=== PATIENT | male | born 1955 | race Caucasian/White ===

== ENCOUNTER 2017-05-17 21:09 | Inpatient (IN) | payer OTHER ==
[~2017-05-17] VITALS: Ht 172.7 cm; Wt 60.0 kg
--- NOTE | 2017-05-17 21:17 | NUR ---
PT TO ER C/C N/V X 1 DAY. + RUQ PAIN SHARP IN NATURE. PATIENT ALSO STATES IS HAVING MILD SOB
--- NOTE | 2017-05-17 21:53 | NUR ---
APPRECIATE TRIAGE NOTE. PT TO ROOM [address] ALVAREZ[address]
--- NOTE | 2017-05-17 22:33 | NUR ---
LABS DRAWN AND SENT. IV ESTABLISHED #20 TO [facility]. MEDICATED PER EMAR.
[2017-05-17 22:38] LABS: ABSOLUTE BASOPHIL COUNT 0 /CUMM (0.0-0.2); ABSOLUTE EOSINOPHIL COUNT 0.1 /CUMM (0.0-0.7); ABSOLUTE GRANULOCYTE CT 11.4 /CUMM (1.4-6.5); ABSOLUTE LYMPH COUNT 1.8 /CUMM (1.2-3.4); ABSOLUTE MONOCYTE COUNT 1.1 /CUMM (0.10-0.60); BASOPHIL % 0.3 % (0.0-2.0); EOSINOPHIL % 0.4 % (0-5); GRANULOCYTE % 79.2 % (42.2-75.2); HEMATOCRIT 44.5 % (42-52); MEAN CORPUSCULAR HGB 30.9 PG (27.0-31.0); MEAN CORPUSCULAR HGB CONC 33.9 G/DL (33.0-37.0); MEAN CORPUSCULAR VOLUME 91.2 FL (80.0-94.0); MEAN PLATELET VOLUME 8.9 FL (7.4-10.4); PLATELET COUNT 253 /CUMM (130-400); RBC DISTRIBUTION WIDTH 13.9 % (11.5-14.5); RED BLOOD CELL CT 4.88 /CUMM (4.70-6.10); WHITE BLOOD CELL COUNT 14.4 /CUMM (4.8-10.8)
--- NOTE | 2017-05-17 23:00 | NUR ---
PT RESTING COMFORTABLY ON STRETCHER AT THIS TIME, NAD NOTED.
--- NOTE | 2017-05-17 23:22 | RADIOLOGY REPORT ---
EXAMINATION: XR CHEST CLINICAL INFORMATION: Productive cough. Weakness. COMPARISON: None TECHNIQUE: 2 views of the chest were obtained. FINDINGS: No significant abnormality is noted involving the heart, lungs, mediastinum, bony thorax or soft tissues. IMPRESSION: Unremarkable examination.
--- NOTE | 2017-05-18 00:10 | NUR ---
URINE SAMPLE SENT TO LAB
[2017-05-18] MEDS ORDERED: AMLODIPINE BESY10 M1 PO (00:33)
[2017-05-18] MEDS ORDERED: PROAIR HFA8.5 GM INH (00:33)
[2017-05-18] MEDS ORDERED: LISINOPRIL10 M1 PO (00:33)
[2017-05-18] MEDS ORDERED: FLUTICASONE PRO16 GM NASB (00:33)
--- NOTE | 2017-05-18 01:01 | ED DYSPNEA/ASTHMA COMPLAINT ---
History of Present Illness General Chief Complaint: Dyspnea (COPD, CHF, Other) Stated Complaint: PT SOB OF BREATH, RT SIDE PAIN,LIGTH HEADED Source: patient, old records, friend Exam Limitations: no limitations Vital Signs & Intake/Output Vital Signs & Intake/Output Vital Signs Date Time Temp Pulse Resp B/P B/P Pulse O2 O2 Flow FiO2 Mean Ox Delivery Rate 05/18 0128 96.5 76 20 108/58 96 Room Air 05/17 2256 97.8 90 17 126/70 99 Room Air 05/17 2116 97.4 95 18 129/74 98 Room Air ED Intake and Output 05/18 0000 05/17 1200 Intake Total 1000 Output Total Balance 1000 Intake, IV 1000 Patient 135 lb Weight Weight Estimated Measurement Method Allergies Coded Allergies: Penicillins (Intermediate, ABD PAIN 05/17/17) Reconcile Medications Amlodipine Besylate 10 MG TABLET 1 TAB PO DAILY HIGH BLOOD PRESSURE (Reported ) Triage Note: PT TO ER C/C N/V X 1 DAY. + RUQ PAIN SHARP IN NATURE. Triage Nurses Notes Reviewed? yes Onset: Last week Duration: day(s):, constant, continues in ED, getting worse Timing: recent history Severity: moderate, severe Activities at Onset: none Prior Episodes/Possible Cause: occasional episodes Modifying Factors: Worsens With: jarring, movement. Associated Symptoms: cough, loss of appetite, lightheadedness, weakness HPI: 1 week prior to admission patient complains of nonproductive cough shortness of breath anorexia nausea vomiting with right lower chest upper quadrant pain described as sharp moderate to severe nonradiating constant. He was supposed to follow-up with [facility] / liver team for 2 masses identified on his liver. Denies fever chills headache dysuria rash diarrhea bleeding. Reports losing 6 pounds over the last week. Past History Travel History Traveled to [place] past 21 day No Medical History Any Pertinent Medical History? see below for history Cardiovascular: hypertension Hepatic: 2 liver masses ? hepatoma Surgical History Surgical History: non-contributory Psychosocial History What is your primary language Czech Tobacco Use: Current Daily Use Daily Tobacco Use Amount/Type: => 5 Cigarettes daily Family History Hx Contributory? No Review of Systems Review of Systems Constitutional: Reports: see HPI, malaise. EENTM: Reports: no symptoms. Respiratory: Reports: see HPI, cough, short of breath. Cardiovascular: Reports: no symptoms. GI: Reports: see HPI, abdominal pain, nausea, vomiting. Genitourinary: Reports: no symptoms. Musculoskeletal: Reports: no symptoms. Skin: Reports: no symptoms. Neurological/Psychological: Reports: no symptoms. Hematologic/Endocrine: Reports: no symptoms. Immunologic/Allergic: Reports: no symptoms. All Other Systems: Reviewed and Negative Physical Exam Physical Exam General Appearance: well developed/nourished, alert, awake, anxious, moderate distress, thin Head: atraumatic, normal appearance Eyes: Bilateral: normal appearance, PERRL, EOMI. Ears, Nose, Throat: normal pharynx, normal ENT inspection, hearing grossly normal Neck: normal inspection, supple, full range of motion, no midline tenderness Respiratory: normal breath sounds, chest non-tender, no respiratory distress, quiet respiration, lungs clear Cardiovascular: regular rate/rhythm, normal peripheral pulses, norml femoral pulses equa Peripheral Pulses: 4+ carotid (R), 4+ carotid (L) Gastrointestinal: normal bowel sounds, soft, no organomegaly, tenderness (right upper quadrant), hepatomegaly Extremities: normal inspection, normal capillary refill, normal range of motion, no edema Neurologic/Psych: no motor/sensory deficits, awake, alert, oriented x 3, normal gait, normal mood/affect, facility rehab director II-XII nml as tested Skin: intact, normal color, warm/dry Lymphatic: no anterior cervical vladimir Core Measures ACS in differential dx? No Severe Sepsis Present: No Septic Shock Present: No Progress Differential Diagnosis: COPD, pneumonia Plan of Care: Orders Procedure Date/time Status Regular Diet 05/18 B Active OXYGEN SETUP (GEN) 05/18 58 Active Saline Lock 05/18 58 Active Admit to inpatient 05/18 0058 Active Vital Signs 05/18 0058 Active Activity/Ambulation 05/18 0058 Active Code Status 05/[address] ABD & PELVIS W/O IV CONTRAS 05/18 0057 Active Patient Data 05/18 0035 Active URINALYSIS 05/17 2338 Complete Intake & Output 05/17 2232 Active TROPONIN LEVEL 05/17 220 Complete LIPASE 05/17 220 Complete DIRECT BILIRUBIN 05/17 2201 Complete COMPREHENSIVE METABOLIC PANEL 05/17 2201 Complete CBC WITHOUT DIFFERENTIAL 05/17 2201 Complete EKG 05/172 Active Current Medications Sig/Tameka Start time Last Medication Dose Stop Time Status Admin Amlodipine Besylate 10 MG DAILY 05/18 1000 UNVr (Norvasc) Ondansetron HCl 4 MG Q6P PRN 05/18 0115 UNVr (Zofran) Sodium Chloride 1,000 ML Q10H 05/18 0115 UNVr 05/18 (Normal Saline 0.9%) 0127 Laboratory Tests 05/18/17 0009: Urinalysis LIGHT H, Urine Color YEL, Urine Clarity CLEAR, Urine pH 6.0, Ur Specific Bishop 1.015, Urine Protein 100 H, Urine Ketones NEG, Urine Nitrite NEG, Urine Bilirubin NEG, Urine Urobilinogen 0.2, Ur Leukocyte Esterase NEG, Ur Microscopic SEDIMENT EXAMINED, Urine RBC 1-3, Urine WBC 1-3 H, Ur Epithelial Cells FEW, Urine Bacteria FEW H, Hyaline Casts RARE H, Urine Mucus FEW, Urine Hemoglobin TRACE-INTACT H, Urine Glucose NEG 05/17/17 2226: Anion Gap 20 H, Estimated GFR 23 L, BUN/Creatinine Ratio 15.4, Glucose 115 H, Calcium 8.9, Total Bilirubin 0.4, Direct Bilirubin 0.4, AST 38, ALT 33, Alkaline Phosphatase 145 H, Troponin I < 0.01, Total Protein 8.0, Albumin 4.7, Globulin 3.3, Albumin/Globulin Ratio 1.4, Lipase 36, CBC w Diff NO MAN DIFF REQ, RBC 4.88 , MCV 91.2, MCH 30.9, RDW 13.9, MPV 8.9, Gran % 79.2 H, Lymphocytes % 12.3 L, Monocytes % 7.8, Eosinophils % 0.4, Basophils % 0.3, Absolute Granulocytes 11.4 H, Absolute Lymphocytes 1.8, Absolute Monocytes 1.1 H, Absolute Eosinophils 0.1 , Absolute Basophils 0, PUBS MCHC 33.9 Diagnostic Imaging: Viewed by Me: Radiology Read. Discussed w/RAD: Radiology Read. Radiology Impression: no acute abnormality Initial ED EKG: normal axis, normal intervals, normal p-waves, normal QRS complex, normal sinus rhythm, no ST T wave changes Prior EKG: unchanged Rhythm Strip: normal sinus rhythm Departure Departure Disposition: STILL A PATIENT Condition: Stable Clinical Impression Primary Impression: Acute renal failure Qualifiers: Acute renal failure type: unspecified Qualified Code: N17.9 - Acute kidney failure, unspecified Secondary Impressions: Liver masses, Right upper quadrant pain Referrals: KAROL GIBBS (PCP/Family) Departure Forms: Customer Survey General Discharge Information Admission Note Spoke With: ANYA DEJESUS MD Documentation of Exam: Documentation of any treatments & extenuating circumstances including Concerns Regarding Discharge (functional status, medication knowledge or non-compliance, living conditions, etc.) that warrant an admission rather than observation: IV hydration advance diet serial lab exam GI evaluation renal evaluation continuing care discharge planning Critical Care Note Critical Care Note Critical Care Time: non-applicable
--- NOTE | 2017-05-18 01:59 | NUR ---
REPORT GIVEN TO MELANY STOREY.
--- NOTE | 2017-05-18 02:08 | NUR ---
PT TO CAT SCAN VIA W/C, THEN TO FLOOR WITH [facility]. ALL PAPERWORK AND BELONGINGS SENT WITH PT. CLINICAL STATUS UNCHANGED.
[2017-05-18 02:21] VITALS: BP 136/74
--- NOTE | 2017-05-18 02:57 | CT SCAN REPORT ---
EXAMINATION: CT ABDOMEN AND PELVIS WITHOUT CONTRAST CLINICAL INFORMATION: Right upper quadrant pain COMPARISON: 01/03/2017 TECHNIQUE: Multidetector volumetric imaging was performed from the superior aspect of the liver through the pubic symphysis. Sagittal and coronal reformatted images were obtained on the technologist's workstation. DLP: 263.51 mGy-cm FINDINGS: LUNG BASES: The visualized lung bases are unremarkable. LIVER, GALLBLADDER, AND BILIARY TREE: There are multiple masses identified within the liver, increased in number since 01/03/2017. The largest mass lies in the inferior right hepatic lobe and measures approximately 7.7 x 7.7 cm, increased from approximately 5.7 x 5.3 cm when measured in similar fashion previously. No significant biliary ductal dilatation is seen. The gallbladder is unremarkable. PANCREAS: Unremarkable. SPLEEN: Unremarkable. ADRENAL GLANDS: Unremarkable. KIDNEYS AND URETERS: The kidneys are normal in size, shape, and attenuation. There are a few punctate renal calculi bilaterally. No hydronephrosis bilaterally. BLADDER: Unremarkable. GASTROINTESTINAL TRACT: A suture line is present in the sigmoid colon. There is colonic diverticulosis without convincing evidence for diverticulitis. No evidence of bowel obstruction. The appendix is unremarkable. ABDOMINAL WALL: No significant hernia is appreciated. LYMPH NODES: No lymphadenopathy is seen, though assessment is somewhat limited in the absence of intravenous contrast. VASCULAR: There is atherosclerotic calcification along the aorta. PELVIC VISCERA: Unremarkable. OSSEOUS STRUCTURES: Multilevel degenerative changes are present, most prominently at L5-S1. IMPRESSION: 1. Interval increase in number of hepatic masses since 01/03/2017, suspicious for metastatic disease. The largest mass measures approximately 7.7 x 7.7 cm, increased from 5.7 x 5.3 cm previously. 2. Punctate bilateral renal calculi without hydronephrosis. 3. Colonic diverticulosis.
--- NOTE | 2017-05-18 03:50 | History & Physical ---
SLIME MASON,[facility] 05/18/17 0309: General Information and HPI MD Statement: I have seen and personally examined ALIREZA LOUIS and documented this H&P. The patient is a 61 year old M who presented with a patient stated chief complaint of [abdominal pain, nausea vomiting]. Source of Information: patient Exam Limitations: no limitations History of Present Illness: Mr. Louis is 61 year old male with past medical history of hypertension, COPD , diverticulitis status post diversion colostomy, alcohol abuse, current smoker who presented to ED with chief complaint of abdominal pain, nausea vomiting and dyspnea. Patient reported abdominal pain right upper quadrant radiating to epigastrium, sharp in nature, 7/10 that started over the last week and had maximum intensity today associated with nausea and vomiting 2 of dark "soda" like vomits, concentrated urine, poor appetite, weight loss (approximately 6 pounds), diarrhea 2 today watery, denied blood. In December 2016, patient had low-dose CT scan screening for lumg cancer and was noticed to have some abnormality in the liver, PCP requested MRI abdomen pelvis that revealed multiple hepatic metastatic disease/cholangiocarcinoma. Patient followed up with Dr. Edgar Mathur who advised him to follow at [facility]. Patient missed his appointment on May 17 at [facility] because of transportation issues. Patient reported shortness of breath started today, dry cough, chills, night sweats, dizziness and blurry vision for the last couple of days. Patient denied any fever, dysuria, hematuria, chest pain, palpitation, loss of consciousness, history of falls, skin changes, jaundice. Patient isn't every day smoker, cut down to 5 cigarettes per day, smokes since age 17. History of narcotic abuse, quit 18 years ago. No history of IV drug abuse. Patient reported negative hepatitis and HIV. 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 Family history strong for cancer, father had prostate cancer, mother colon cancer and brother oropharyngeal cancer. Next of kin sister Allergies/Medications Allergies: Coded Allergies: Penicillins (Intermediate, ABD PAIN 05/17/17) Home Med list Amlodipine Besylate 10 MG TABLET 1 TAB PO DAILY HIGH BLOOD PRESSURE (Reported ) Past History Travel History Traveled to [place] past 21 day No Medical History Blood Transfusion Hx: No Neurological: NONE EENT: NONE Cardiovascular: hypertension Respiratory: COPD Gastrointestinal: NONE Hepatic: 2 liver masses ? hepatoma Renal: NONE Musculoskeletal: NONE Psychiatric: NONE Endocrine: NONE Blood Disorders: NONE Cancer(s): liver cancer MANAGER PRIVATE/Reproductive: NONE History of MRSA: No History of VRE: No History of CDIFF: No Isolation History: Standard Surgical History Surgical History: diverticulitis s/p colostomy diversion Past Family/Social History Psychosocial History Where do you live? Other (homeless ) Who Do You Live With? homeless Services at Home: None Primary Language: [place] Smoking Status: Current Everyday Smoker ETOH Use: denies use, x used Illicit Drug Use: denies illicit drug use Other Social History: Nest of kin is sister Functional Ability ADLs Independent: dressing, eating, toileting, bathing. Ambulation: independent IADLs Independent: shopping, housework, finances, food prep, telephone, transportation , medication admin. Employment History Employment Unemployed Review of Systems Review of Systems Constitutional: Reports: see HPI. Exam & Diagnostic Data Last 24 Hrs of Vital Signs/I&O Vital Signs Date Time Temp Pulse Resp B/P B/P Pulse O2 O2 Flow FiO2 Mean Ox Delivery Rate 05/18 0221 98.0 82 18 136/74 98 Room Air 05/18 0128 96.5 76 20 108/58 96 Room Air 05/17 2256 97.8 90 17 126/70 99 Room Air 05/17 2116 97.4 95 18 129/74 98 Room Air Intake & Output 05/18 0800 05/18 0000 05/17 1600 Intake Total 1000 Output Total Balance 1000 Intake, IV 1000 Patient 60.016 kg 61.235 kg Weight Weight Standing Scale Estimated Measurement Method Physical Exam General Appearance Alert, Oriented X3, Cooperative, No Acute Distress Skin No Rashes, No Breakdown, No Significant Lesion, Bhat skin Skin Temp/Moisture Exam: Warm/Dry HEENT Atraumatic, PERRLA, EOMI, Mucous Membr. moist/pink Neck Supple, No JVD Lymphatic No cervical lymphadenopathy Cardiovascular Regular Rate, Normal S1, Normal S2, No Murmurs, Tachycardia Lungs diffuse occional wheeze and fine end inspiratory crackles Abdomen Normal Bowel Sounds, Soft, Mild tenderness RUQ and BL CVA Neurological Normal Gait, Normal Speech, Strength at 5/5 X4 Ext, Normal Tone, Sensation Intact, Cranial Nerves 3-12 NL, Reflexes 2+ Extremities No Clubbing, No Cyanosis, No Edema, Normal Pulses, No Tenderness/ Swelling Last 24 Hrs of Labs/Nish: Laboratory Tests 05/18/17 0009: Urinalysis LIGHT H, Urine Color YEL, Urine Clarity CLEAR, Urine pH 6.0, Ur Specific [place] 1.015, Urine Protein 100 H, Urine Ketones NEG, Urine Nitrite NEG, Urine Bilirubin NEG, Urine Urobilinogen 0.2, Ur Leukocyte Esterase NEG, Ur Microscopic SEDIMENT EXAMINED, Urine RBC 1-3, Urine WBC 1-3 H, Ur Epithelial Cells FEW, Urine Bacteria FEW H, Hyaline Casts RARE H, Urine Mucus FEW, Urine Hemoglobin TRACE-INTACT H, Urine Glucose NEG 05/17/17 2226: Anion Gap 20 H, Estimated GFR 23 L, BUN/Creatinine Ratio 15.4, Glucose 115 H, Calcium 8.9, Total Bilirubin 0.4, Direct Bilirubin 0.4, AST 38, ALT 33, Alkaline Phosphatase 145 H, Troponin I < 0.01, Total Protein 8.0, Albumin 4.7, Globulin 3.3, Albumin/Globulin Ratio 1.4, Lipase 36, CBC w Diff NO MAN DIFF REQ, RBC 4.88 , MCV 91.2, MCH 30.9, RDW 13.9, MPV 8.9, Gran % 79.2 H, Lymphocytes % 12.3 L, Monocytes % 7.8, Eosinophils % 0.4, Basophils % 0.3, Absolute Granulocytes 11.4 H, Absolute Lymphocytes 1.8, Absolute Monocytes 1.1 H, Absolute Eosinophils 0.1 , Absolute Basophils 0, PUBS MCHC 33.9 Diagnostic Data CXR Results IMPRESSION: Unremarkable examination. Other Results CT without contrast abdomen and pelvis IMPRESSION: 1. Interval increase in number of hepatic masses since 01/03/2017, suspicious for metastatic disease. The largest mass measures approximately 7.7 x 7.7 cm, increased from 5.7 x 5.3 cm previously. 2. Punctate bilateral renal calculi without hydronephrosis. 3. Colonic diverticulosis. Assessment/Plan Assessment: Mr. Louis is 61 year old male with past medical history of hypertension, COPD , diverticulitis status post diversion colostomy, alcohol abuse, current smoker who presented to ED with chief complaint of abdominal pain, nausea vomiting and dyspnea. History of abnormal MRI abdomen pelvis in December 2016 suggestive for hepatic metastatic disease/cholangiocarcinoma. Vital signs Temperature 97.4, pulse 95, blood pressure 129/74, respiratory rate 18 saturating 98% Pertinent labs WBC 14.4, H&H 15.1/44.5, platelets 253, sodium 138, potassium 3.6 , BUN/creatinine 43/2.8, alkaline phosphatase 145, LFT WNL, troponin negative, UA-veg Problem list #Acute kidney injury #Metastatic liver disease/cholangiocarcinoma #Hypertension #COPD Plan -Admit to general medical floor -Obtain abdomen pelvis CT without IV contrast to follow-up on previous MRI abdomen pelvis results in December 2016 -GI consultation pending CT abdomen and pelvis results -Gentle IV hydration D5 half-normal 75 mL per hour -Repeat liver function test, INR in a.m. -Repeat kidney function test in a.m. -Hepatitis panel -HIV -TRC, nebs as needed -aircraft layout worker consultation -Continue amlodipine 10 mg for hypertension -Nicotine patch -Please obtain baseline LFT and BUN/Cr from PCP in a.m. -Code full -DVT prophylaxis heparin subcutaneous -Diet heart healthy As Ranked By This Provider Problem List: 1. Acute renal failure Qualifiers Acute renal failure type: unspecified Qualified Code: N17.9 - Acute kidney failure, unspecified 2. Right upper quadrant pain 3. Liver masses Core Measures/Miscellaneous Acute Coronary Syndrome ACS Diagnosis: No Cerebrovascular Accident CVA/TIA Diagnosis: No Congestive Heart Failure CHF Diagnosis: No VTE (View Protocol) VTE Risk Factors: Age > 40 No [facility] VTE prophylaxis d/t: No contraindications No VTE Pharm Prophylaxis d/t: No contraindications VTE Diagnosis: No VTE Type: NONE VTE Confirmed by (Test): NONE Sepsis (View Protocol) Severe Sepsis Present: No Septic Shock Septic Shock Present: No Miscellaneous Documentation Attending Case Discussed With: [facility] Primary Care Physician: TALIA SHUKLA Patient sees these Specialists GI Level of Patient Care: General Medicine [facility] 05/18/17 0514: Attending MD Review Statement Attending Statement Attending MD Statement: examined this patient, discuss w/resident/PA/UROLOGY NURSE, agreed w/resident/PA/UROLOGY NURSE Attending Assessment/Plan: 61 yo M smoker with h/o alcohol abuse, HTN, lung nodule, perforated diverticulitis s/p colectomy, recently diagnosed hepatic mass concerning for cancer who awaiting follow up with [facility]/liver team for work up and treatment, presents with 1 week h/o RUQ/ epigastric pain, nausea, vomiting, poor appetite, weight loss and dyspnea on exertion. Did not eat or drink much over past 5 days. He notes that liquids just go right through him causing watery diarrhea, with no formed stools. VSS. Labs: WBC 14.4, bicarb 14, AG 20, BUN 43, creat 2.8 (no baseline available) , glucose 115, LFTs normal, Alk phos 145, trop neg, lipase normal. UA clear. CXR : unremarkable. CT abd/pelvis: interval increase in number of hepatic massess ( compared to Dec 2016), b/l renal calculi w/o hydronephrosis. EKG: SR with ~ [address] depressions in V3-6 (old vs. new). 1. Acute kidney injury likely pre-renal 2/2 dehydration. GM admit, gentle IV hydration, trend renal functions. Avoid NSAIDS or nephrotoxic drugs. Nutrition consultation. Please obtain baseline labs (renal functions) from patient's PCP. 2. High anion gap metabolic acidosis likely 2/2 renal failure and starvation ketoacidosis. Check lactic acid, tylenol and salicylate levels. Check alcohol levels. Check HbA1c. Check urine tox screen. 3. Liver mass ?mets vs. Primary cancer. Needs further evaluation by [facility]/ liver team. Patient missed his appointment scheduled for May 15 due to transportation issues. His LFTs are normal. Lipase is normal, no evidence of pancreatitis. Will check hep panel and HIV. CT s/o increasing liver mass. Outpatient follow at [facility] on discharge. Smoking cessation counseling. Social work consult. 4. Subtle EKG changes (no previous EKG). First set troponin neg. Will recheck EKG and troponin in AM. 5. Leukocytosis likely reactive. CXR is negative for consolidation. Check urinalysis. No evidence of abdominal ascites concerning for SBP. Monitor off antibiotics. DVT ppx Hep SC. Full code. MARLENE OAKLEY MD 05/18/17 0609: Resident Review Statement Resident Statement: examined this patient, discussed with analysis intern, agreed with analysis intern Other Findings: This is a pleasant 61-year-old man with a past medical history of alcohol abuse, hypertension, diverticulitis with perforation, newly diagnosed hepatocellular carcinoma with metastasis who presents with complaints of right upper quadrant pain with radiation to the epigastrium and lower back with associated nausea and vomiting today. He also reports 1 or 2 episodes of watery stool after intake of fluids which discouraged him from drinking fluids. He also endorses some shortness of breath, with chills and night sweats and dark colored urine. He reports a poor appetite and unintentional weight loss in the past 3 weeks. He denies a hx of hepatitis B or C. He was recently diagnosed with hepatocellular carcinoma in December this year, when a low-dose CT scan for lung cancer screening picked up nodules in his liver. Further evaluation with MRI picked up a large hypodense mass in the liver with possible metastasis to other parts of the liver. He was referred to Madi Mathur MD who evaluated him and subsequently referred him to the liver service at [facility]. However patient was unable to make his appointment on May 15 due to transportation constraints. He is a current smoker and is homeless [lives out of his car]. He follows up with his primary care physician at the [facility]; Talia Shukla APRN. Vital stable Pertinent exam-AAOx3, no jaundice, tanned skin, right upper quadrant tenderness, no hepatosplenomegaly, normal bowel sounds, no pedal edema WBC 14.4, H&H 15.1/44.5, at 253, sodium 138, potassium 3.6, BUN 43, creatinine 2.8, glucose 115, trop x 1 Neg EKG shows less than 1mm T-wave depression in multiple leads, no prior EKG Assessment 1. Acute kidney injury 2. Newly diagnosed hepatocellular carcinoma with metastasis 3. Hypertension 4. Leukocytosis; probably reactive Plan Admit to general medicine IV fluid hydration with normal saline Daily BEP Check a trop and EKG in am Repeat CT scan of the abdomen without contrast to evaluate liver mass and rule out any other intra-abdominal pathology Check Hepatitis panel/HIV Check a UA Social work consult Check hemoglobin A1c Repeat labs in AM Heart healthy diet DVT prophylaxis with subcutaneous heparin Adequate pain control Full code
--- NOTE | 2017-05-18 05:15 | Admission Certification ---
Admission Certification Certification Statement - As attending physician, I certify that at the time of - admission, based on clinical presentation, severity of - symptoms, need for further diagnostic testing and - therapeutic interventions, and risk of adverse outcomes - without in-hospital treatment, in my clinical assessment, - this patient requires an acute hospital stay for a minimum - of two nights or longer. I have also considered psychsocial - factors such as support system, advanced age, financial - issues, cognitive issues, and failed out-patient treatments, - past re-admission history, safety of patient, and lack of - compliance as applicable. Specific rationale supporting this admission is: CURTIS, metabolic acidosis, liver mass.
[2017-05-18 06:25] VITALS: BP 120/72
[2017-05-18 08:11] LABS: ABSOLUTE BASOPHIL COUNT 0 /CUMM (0.0-0.2); ABSOLUTE EOSINOPHIL COUNT 0.1 /CUMM (0.0-0.7); ABSOLUTE GRANULOCYTE CT 9.5 /CUMM (1.4-6.5); ABSOLUTE LYMPH COUNT 2.6 /CUMM (1.2-3.4); ABSOLUTE MONOCYTE COUNT 1.2 /CUMM (0.10-0.60); BASOPHIL % 0.3 % (0.0-2.0); EOSINOPHIL % 0.9 % (0-5); GRANULOCYTE % 70.6 % (42.2-75.2); HEMATOCRIT 40.5 % (42-52); MEAN CORPUSCULAR HGB 30.9 PG (27.0-31.0); MEAN CORPUSCULAR HGB CONC 33.8 G/DL (33.0-37.0); MEAN CORPUSCULAR VOLUME 91.4 FL (80.0-94.0); MEAN PLATELET VOLUME 9.1 FL (7.4-10.4); PLATELET COUNT 226 /CUMM (130-400); RED BLOOD CELL CT 4.43 /CUMM (4.70-6.10); WHITE BLOOD CELL COUNT 13.4 /CUMM (4.8-10.8)
--- NOTE | 2017-05-18 08:44 | Event Note ---
Event Note Event Note: Assessment and plan: 61-year-old male with past medical history of hypertension, COPD, Hemochromatosis, diverticulitis status post divergent colostomy, alcohol abuse, current smoker, and a recent diagnosis of liver mass, presented to the emergency department with complaints of worsening abdominal pain, nausea, vomiting, poor appetite since 3 weeks. Currently the patient is being managed in the general medical floor for the following issues: #Acute kidney injury, secondary to dehydration Patient reported decreased appetite and very poor oral intake, and only some fluid intake in the past 3 days. His BUN/creatinine upon admission was 43/2.8. He was hydrated in the emergency department, and this morning's BUN and creatinine is 32/1.9. His BUN/Creatinine record obtained from his PCP office ( done on 04/17/17) was 14/1.33. This gives us the diagnosis of CURTIS which seems to be improving. * Will continue IV hydration for now @100ml/hr (slow down if signs of overload) * Continue Zofran PRN * Reassess BEP in AM #Liver mass, abdomen pain/discomfort He has a recently discovered liver mass by MRI and was seen by GI Dr Madi Mathur, who refered him to [place] [facility], considering it to be HCC, pending biopsy. He could not follow up with the appointment so still does not have a definite diagnosis. His bilirubin is 0.4 T, 0.4 D, and ALP of 145, AST/ALT 38/33 , GGT 88, giving a micture of possible mild liver stasis, but no jaundice yet. INR- 1.31. His abdominal discomfort, nausea, vomiting, decreased appetite could be related to his hepatic cause. His diarrhea that he describes as undigested, and loose, could also have a biliary cause. His MELD score is 22 to begin with if this turns out to be HCC of 2-5 cm (3 month mortality 19.6% chance). His lesions are approximately 7.7 x 7.7 cm, increased from approximately 5.7 x 5.3 cm. * GI consultation appreciated. * Patient will receive a ultrasound-guided liver biopsy on Sunday. * Orders have been placed accordingly, with NPO order starting Sunday midnight. #Renal calculi Could also be the cause of his intermittant back pain. * Adequate hydration and pain management planned. #HTN * Continue home med of Amldipine 10mg daily. #Colonic diverticulosis Not bleeding UT, not inflammed currently. Nothing to do for now. #Adequate pain management with bowel regimen ordered. Can give Dilaudid for breakthrough pain. #Diet: Regular diet #DVT ppx: SQ Heparin (INR 1.31) #Code status: Full code Labworks obtained from his PCP's office today: 04/17/17: CBC h/h 15.2/45.1 HbA1c: 6.1 BUN 14 Creatinine: 1.33 : Ferritin: 295
--- NOTE | 2017-05-18 11:33 | PN- Att Addend ---
Attending Addendum Attending Brief Note Patient seen and examined, feeling almost the same. Still complains of abdominal pain in the right upper quadrant. Creatinine was slightly better this morning. Vital Signs Date Time Temp Pulse Resp B/P B/P Pulse O2 O2 Flow FiO2 Mean Ox Delivery Rate 05/18 0844 63 120/73 05/18 0625 98.1 63 18 120/72 96 Room Air 05/18 0221 98.0 82 18 136/74 98 Room Air 05/18 0128 96.5 76 20 108/58 96 Room Air 05/17 2256 97.8 90 17 126/70 99 Room Air 05/17 2116 97.4 95 18 129/74 98 Room Air on exam; aox3, nad. cv; s1,s2, rrr resp; clear abd; soft, tender in ruq, bs+ ext; no edema Laboratory Tests 05/18 05/18 1120 0612 Chemistry Sodium (137 - 145 mmol/L) 140 Potassium (3.5 - 5.1 mmol/L) 3.6 Chloride (98 - 107 mmol/L) 112 H Carbon Dioxide (22 - 30 mmol/L) 17 L Anion Gap (5 - 16) 11 BUN (9 - 20 mg/dL) 32 H Creatinine (0.7 - 1.2 mg/dL) 1.9 H Estimated GFR (>60 ml/min) 36 L BUN/Creatinine Ratio (7 - 25 %) 16.8 Hemoglobin A1c (4.2 - 5.8 %) 5.8 GGT (15 - 73 U/L) 88 H Troponin I (<0.11 ng/ml) < 0.01 Coagulation PT Pending INR Pending Hematology CBC w Diff NO MAN DIFF REQ WBC (4.8 - 10.8 /CUMM) 13.4 H RBC (4.70 - 6.10 /CUMM) 4.43 L Hgb (14.0 - 18.0 G/DL) 13.7 L Hct (42 - 52 %) 40.5 L MCV (80.0 - 94.0 FL) 91.4 MCH (27.0 - 31.0 PG) 30.9 RDW (11.5 - 14.5 %) 14.0 Plt Count (130 - 400 /CUMM) 226 MPV (7.4 - 10.4 FL) 9.1 Gran % (42.2 - 75.2 %) 70.6 Lymphocytes % (20.5 - 51.1 %) 19.3 L Monocytes % (1.7 - 9.3 %) 8.9 Eosinophils % (0 - 5 %) 0.9 Basophils % (0.0 - 2.0 %) 0.3 Absolute Granulocytes (1.4 - 6.5 /CUMM) 9.5 H Absolute Lymphocytes (1.2 - 3.4 /CUMM) 2.6 Absolute Monocytes (0.10 - 0.60 /CUMM) 1.2 H Absolute Eosinophils (0.0 - 0.7 /CUMM) 0.1 Absolute Basophils (0.0 - 0.2 /CUMM) 0 PUBS MCHC (33.0 - 37.0 G/DL) 33.8 Serology Hepatitis A IgM Ab (NONREACTIVE) NONREACTIVE Hep Bs Antigen (NONREACTIVE) NONREACTIVE Hep B Core IgM Ab Conf (NONREACTIVE) NONREACTIVE Hepatitis C Antibody (NONREACTIVE) NONREACTIVE HIV 1&2 Ab Western Blot (NONREACTIVE) NONREACTIVE 05/18 05/17 0009 2226 Chemistry Sodium (137 - 145 mmol/L) 138 Potassium (3.5 - 5.1 mmol/L) 3.6 Chloride (98 - 107 mmol/L) 103 Carbon Dioxide (22 - 30 mmol/L) 14 L Anion Gap (5 - 16) 20 H BUN (9 - 20 mg/dL) 43 H Creatinine (0.7 - 1.2 mg/dL) 2.8 H Estimated GFR (>60 ml/min) 23 L BUN/Creatinine Ratio (7 - 25 %) 15.4 Glucose (65 - 99 mg/dL) 115 H Calcium (8.4 - 10.2 mg/dL) 8.9 Total Bilirubin (0.2 - 1.3 mg/dL) 0.4 Direct Bilirubin (< 0.4 mg/dL) 0.4 AST (17 - 59 U/L) 38 ALT (21 - 72 U/L) 33 Alkaline Phosphatase (< 127 U/L) 145 H Troponin I (<0.11 ng/ml) < 0.01 Total Protein (6.3 - 8.2 g/dL) 8.0 Albumin (3.5 - 5.0 g/dL) 4.7 Globulin (1.9 - 4.2 gm/dL) 3.3 Albumin/Globulin Ratio (1.1 - 2.2 %) 1.4 Lipase (23 - 300 U/L) 36 Hematology CBC w Diff NO MAN DIFF REQ WBC (4.8 - 10.8 /CUMM) 14.4 H RBC (4.70 - 6.10 /CUMM) 4.88 Hgb (14.0 - 18.0 G/DL) 15.1 Hct (42 - 52 %) 44.5 MCV (80.0 - 94.0 FL) 91.2 MCH (27.0 - 31.0 PG) 30.9 RDW (11.5 - 14.5 %) 13.9 Plt Count (130 - 400 /CUMM) 253 MPV (7.4 - 10.4 FL) 8.9 Gran % (42.2 - 75.2 %) 79.2 H Lymphocytes % (20.5 - 51.1 %) 12.3 L Monocytes % (1.7 - 9.3 %) 7.8 Eosinophils % (0 - 5 %) 0.4 Basophils % (0.0 - 2.0 %) 0.3 Absolute Granulocytes (1.4 - 6.5 /CUMM) 11.4 H Absolute Lymphocytes (1.2 - 3.4 /CUMM) 1.8 Absolute Monocytes (0.10 - 0.60 /CUMM) 1.1 H Absolute Eosinophils (0.0 - 0.7 /CUMM) 0.1 Absolute Basophils (0.0 - 0.2 /CUMM) 0 PUBS MCHC (33.0 - 37.0 G/DL) 33.9 Urines Urinalysis LIGHT H Urine Color (YEL,AMB,STR) YEL Urine Clarity (CLEAR) CLEAR Urine pH (5.0 - 8.0) 6.0 Ur Specific [place] (1.001 - 1.035) 1.015 Urine Protein (NEG,<30 MG/DL) 100 H Urine Ketones (NEG) NEG Urine Nitrite (NEG) NEG Urine Bilirubin (NEG) NEG Urine Urobilinogen (0.1 - 1.0 EU/dl) 0.2 Ur Leukocyte Esterase (NEG) NEG Ur Microscopic SEDIMENT EXAMINED Urine RBC (0 - 5 /HPF) 1-3 Urine WBC (0 - 2 /HPF) 1-3 H Ur Epithelial Cells (NONE,FEW) FEW Urine Bacteria (NEG/NONE) FEW H Hyaline Casts (0/LPF) RARE H Urine Mucus (FEW,NONE) FEW Urine Hemoglobin (NEG) TRACE-INTACT H Urine Glucose (N MG/DL) NEG A/P; 61 y/o M with pmh sig for hypertension, COPD, diverticulitis status post diversion colostomy, alcohol abuse, recently diagnosed lung mass and was referred to [facility] but missed his appointment who is admitted with abdominal pain, nausea and vomiting and found to have acute renal failure as well as enlargement of the liver mass. Hepatitis serology and HIV serology negative. Patient was started on IV fluids and creatinine improving slowly, will obtain a GI consult. Patient ordered pain regimen. DVT prophylaxis: Heparin subcutaneous. Will d/w GI about further recs.
[2017-05-18 11:50] LABS: PT 13.7 SEC (9.4-12.5)
--- NOTE | 2017-05-18 12:35 | NUR ---
Sw referral received from MD Helen and MD Maya for pt being homeless and and needing help with getting to his follow up care for Liver CA. Pt is a 61 yo single male. He reports he did not attend his follow up liver appointment at [place] because he did not have access to a shower and he did not want to go with out being clean. Pt reports he is currently homeless living out of his car and occasssionally staying or shower at his sister's home. He often can shower at his sister home but, for some reason it didn't happen prior to the appointment so he did not go. Pt feels he can make another appointment for follow up care. Pt reports he needs to get a job so he can get an apt. Pt seems overwhelmed by getting his basic needs met. Pt is aware he can call [address] [facility] [address]. he reports there is a month wait. Pt can also report all the negative stories he has heard about the jail but has never been to one. Pt will not stay at a jail in [place], near his [facility] he reports everything he owns in in his car and it will get stolen in [place]. Pt reports he last workerd in 2012 prior to moving to [facility] to live with a girlfriend he met on line. He lived there for 3 years and worked around her home. 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 Pt not sure what work he willbe able to do. Sw and pt discussed a jail would give him a bed, shower and food. It could help him gain strenght and get to appoinments. Pt had a difficulty verbalizing his health problem but, he is aware he needs to go to [place] for blood test and maybe a biopsy. Pt denies being resistant to an appointment at [place] due to location or car problems. He state would not go without a shower. Pt reports he does not have any friends here. Sw encouraged pt to call [address] and see what might be available and when. Sw encouraged pt to try [facility]/ jail and if he did not like he could leave to his car. Sw discussed that people and staff change at jail and maybe there would be someone who could help him; help him with a job. Pt also reported he applied to [facility] but had been denied. He then went to [facility] for help and had a [facility] phone appointment set up but missed the call. Pt thinking about going back to [facility] for help with [facility]. Pt reported his discablity was his fingers but could not elaborate. Sw reported to pt that maybe [facility] could help with is new dx and medical needs. Pt will considering going there as well. Sw ended encourging pt to [facility] so he could have a cool safe place to sleep this summer. Sw tried to give pt a time to complete the call by but pt did not seem to want to make the call. reviewed with pt his hospital number and how to make a call. Sw available upon request.
--- NOTE | 2017-05-18 13:33 | Cons- Gastroenterology ---
General Information and HPI Consulting Request Date of Consult: 05/18/17 Requested By: OLEG MASON,ANYA Reason for Consult: Nausea and vomiting. Abdominal pain. Abnormal CAT scan showing liver masses. Source of Information: patient, old records Exam Limitations: poor historian History of Present Illness: Mr. Louis is a 61-year-old male with multiple medical problems including hemachromatosis for which he reports he has not received phlebotomy in about 3 years, COPD, and a recent MRI showed a liver mass this past December of uncertain etiology who presented to [facility] yesterday with complaints of abdominal pain associated with vomiting. He reports that for the past week he has had sharp right upper quadrant abdominal pain which does not radiate to his back or to the rest of his abdomen. He denies any burning pain, but he does occasionally get some heartburn and uses Tums for with good benefit. Yesterday he had worsening of his pain and vomited up some liquids and what he had previously eaten, but he is without any hematemesis. He has been having normal bowel movements without any bright blood per rectum or melena. He has had a mild weight loss of about 5-6 pounds over the past week or 2. On presentation to the ER he was hemodynamically stable and afebrile. He was noted to have some renal insufficiency from his baseline so he was admitted to the medical service and hydrated overnight with some improvement in his creatinine this morning. Since having admitted his abdominal pain has markedly improved, and he has been tolerating an oral diet without any further vomiting. He has had a repeat CAT scan which shows an increase in the number and the size of his hepatic lesions. He denies any jaundice, adam-colored stool, or dark urine and he is also not been having any fevers. Allergies/Medications Allergies: Coded Allergies: Penicillins (Intermediate, ABD PAIN 05/17/17) Home Med List: Amlodipine Besylate 10 MG TABLET 1 TAB PO DAILY HIGH BLOOD PRESSURE (Reported ) Current Medications: Current Medications Sig/Tameka Start time Last Medication Dose Route Stop Time Status Admin Acetaminophen 650 MG Q6P PRN 05/18 0215 AC PO Amlodipine Besylate 10 MG DAILY 05/18 1000 AC 05/18 PO 0844 Heparin Sodium 5,000 UNIT Q8 05/18 0600 AC 05/18 (Porcine) SC 1324 Hydromorphone HCl 1 MG Q6P PRN 05/18 0215 DC 05/18 IV 0844 Ondansetron HCl 4 MG Q6P PRN 05/18 0115 AC IV Ondansetron HCl 0 .STK-MED ONE 05/17 2244 DC .ROUTE Ondansetron HCl 4 MG ONCE ONE 05/17 2200 DC 05/17 IV 05/17 2201 2234 Oxycodone/ 2 TAB Q6P PRN 05/18 1330 AC 05/18 Acetaminophen PO 1323 Oxycodone/ 1 TAB Q6P PRN 05/18 0215 AC 05/18 Acetaminophen PO 1054 Polyethylene Glycol 17 GM AT BEDTIME 05/18 220 AC PO Senna/Docusate Sodium 1 TAB AT BEDTIME 05/18 220 AC PO Sodium Chloride 1,000 ML Q10H 05/18 0115 AC 05/18 IV 1054 Sodium Chloride 1,000 ML BOLUS ONE 05/17 2345 DC 05/18 IV 05/18 0044 0012 Sodium Chloride 1,000 ML BOLUS ONE 05/17 2200 DC 05/17 IV 05/17 2259 2234 Past History Travel History Traveled to [place] past 21 day No Medical History Blood Transfusion Hx: No Neurological: NONE EENT: NONE Cardiovascular: hypertension Respiratory: COPD Gastrointestinal: NONE Hepatic: 2 liver masses ? hepatoma Renal: NONE Musculoskeletal: NONE Psychiatric: NONE Endocrine: NONE Blood Disorders: NONE Cancer(s): liver cancer [employer] SUPERINTENDENT/Reproductive: NONE Surgical History Surgical History: diverticulitis s/p colostomy diversion Psychosocial History Where Do You Live? Other (homeless ) Who Do You Live With? homeless Services at Home: None Primary Language: Wallisian Smoking Status: Current Everyday Smoker ETOH Use: denies use, x used Illicit Drug Use: denies illicit drug use Other Social History: Nest of kin is sister Functional Ability ADLs Independent: dressing, eating, toileting, bathing. Ambulation: independent IADLs Independent: shopping, housework, finances, food prep, telephone, transportation , medication admin. Employment History Employment: Unemployed Review of Systems Review of Systems Constitutional: Reports: malaise, weakness. Denies: fever. EENTM: Denies: no symptoms. Cardiovascular: Denies: no symptoms. Respiratory: Denies: cough, hemoptysis, short of breath. GI: Reports: see HPI. Genitourinary: Denies: no symptoms. Musculoskeletal: Reports: joint pain, muscle pain. Denies: joint swelling. Skin: Denies: no symptoms. Neurological/Psychological: Denies: no symptoms. Hematologic/Endocrine: Denies: no symptoms. Immunologic/Allergic: Denies: no symptoms. All Other Systems: Reviewed and Negative Exam & Diagnostic Data Vital Signs and I&O Vital Signs Date Time Temp Pulse Resp B/P B/P Pulse O2 O2 Flow FiO2 Mean Ox Delivery Rate 05/18 0844 63 120/73 05/18 0625 98.1 63 18 120/72 96 Room Air 05/18 0221 98.0 82 18 136/74 98 Room Air 05/18 0128 96.5 76 20 108/58 96 Room Air 05/17 2256 97.8 90 17 126/70 99 Room Air 05/17 2116 97.4 95 18 129/74 98 Room Air Intake & Output 05/18 1600 05/18 0400 05/17 1600 05/17 0400 05/16 1600 05/16 0400 Intake Total 1860 1000 Output Total Balance 1860 1000 Intake, IV 1500 1000 Intake, Oral 360 Number 0 Bowel Movements Patient 132 lb 132 lb Weight Weight Standing Scale Measurement Method Physical Exam General Appearance: well developed/nourished, no apparent distress, alert, comfortable Head: atraumatic, normal appearance Eyes: Bilateral: normal appearance. Ears, Nose, Throat: normal pharynx, normal ENT inspection, hearing grossly normal Neck: normal inspection, supple, full range of motion Respiratory: normal breath sounds, chest non-tender, no respiratory distress Cardiovascular: regular rate/rhythm Gastrointestinal: normal bowel sounds, soft, non-tender Rectal: deferred Back: normal inspection, normal range of motion Results Pertinent Lab Results: Laboratory Tests 05/18 05/18 1120 0612 Chemistry Sodium (137 - 145 mmol/L) 140 Potassium (3.5 - 5.1 mmol/L) 3.6 Chloride (98 - 107 mmol/L) 112 H Carbon Dioxide (22 - 30 mmol/L) 17 L Anion Gap (5 - 16) 11 BUN (9 - 20 mg/dL) 32 H Creatinine (0.7 - 1.2 mg/dL) 1.9 H Estimated GFR (>60 ml/min) 36 L BUN/Creatinine Ratio (7 - 25 %) 16.8 Hemoglobin A1c (4.2 - 5.8 %) 5.8 Iron (49 - 181 ug/dL) 84 TIBC (261 - 462 ug/dL) 225 L Ferritin (17.9 - 464 ng/mL) 959.0 H GGT (15 - 73 U/L) 88 H Troponin I (<0.11 ng/ml) < 0.01 Coagulation PT (9.4 - 12.5 SEC) 13.7 H INR (0.90 - 1.17) 1.31 H Hematology CBC w Diff NO MAN DIFF REQ WBC (4.8 - 10.8 /CUMM) 13.4 H RBC (4.70 - 6.10 /CUMM) 4.43 L Hgb (14.0 - 18.0 G/DL) 13.7 L Hct (42 - 52 %) 40.5 L MCV (80.0 - 94.0 FL) 91.4 MCH (27.0 - 31.0 PG) 30.9 RDW (11.5 - 14.5 %) 14.0 Plt Count (130 - 400 /CUMM) 226 MPV (7.4 - 10.4 FL) 9.1 Gran % (42.2 - 75.2 %) 70.6 Lymphocytes % (20.5 - 51.1 %) 19.3 L Monocytes % (1.7 - 9.3 %) 8.9 Eosinophils % (0 - 5 %) 0.9 Basophils % (0.0 - 2.0 %) 0.3 Absolute Granulocytes (1.4 - 6.5 /CUMM) 9.5 H Absolute Lymphocytes (1.2 - 3.4 /CUMM) 2.6 Absolute Monocytes (0.10 - 0.60 /CUMM) 1.2 H Absolute Eosinophils (0.0 - 0.7 /CUMM) 0.1 Absolute Basophils (0.0 - 0.2 /CUMM) 0 PUBS MCHC (33.0 - 37.0 G/DL) 33.8 Serology Hepatitis A IgM Ab (NONREACTIVE) NONREACTIVE Hep Bs Antigen (NONREACTIVE) NONREACTIVE Hep B Core IgM Ab Conf (NONREACTIVE) NONREACTIVE Hepatitis C Antibody (NONREACTIVE) NONREACTIVE HIV 1&2 Ab Western Blot (NONREACTIVE) NONREACTIVE 05/18 05/17 0009 2226 Chemistry Sodium (137 - 145 mmol/L) 138 Potassium (3.5 - 5.1 mmol/L) 3.6 Chloride (98 - 107 mmol/L) 103 Carbon Dioxide (22 - 30 mmol/L) 14 L Anion Gap (5 - 16) 20 H BUN (9 - 20 mg/dL) 43 H Creatinine (0.7 - 1.2 mg/dL) 2.8 H Estimated GFR (>60 ml/min) 23 L BUN/Creatinine Ratio (7 - 25 %) 15.4 Glucose (65 - 99 mg/dL) 115 H Calcium (8.4 - 10.2 mg/dL) 8.9 Total Bilirubin (0.2 - 1.3 mg/dL) 0.4 Direct Bilirubin (< 0.4 mg/dL) 0.4 AST (17 - 59 U/L) 38 ALT (21 - 72 U/L) 33 Alkaline Phosphatase (< 127 U/L) 145 H Troponin I (<0.11 ng/ml) < 0.01 Total Protein (6.3 - 8.2 g/dL) 8.0 Albumin (3.5 - 5.0 g/dL) 4.7 Globulin (1.9 - 4.2 gm/dL) 3.3 Albumin/Globulin Ratio (1.1 - 2.2 %) 1.4 Lipase (23 - 300 U/L) 36 Hematology CBC w Diff NO MAN DIFF REQ WBC (4.8 - 10.8 /CUMM) 14.4 H RBC (4.70 - 6.10 /CUMM) 4.88 Hgb (14.0 - 18.0 G/DL) 15.1 Hct (42 - 52 %) 44.5 MCV (80.0 - 94.0 FL) 91.2 MCH (27.0 - 31.0 PG) 30.9 RDW (11.5 - 14.5 %) 13.9 Plt Count (130 - 400 /CUMM) 253 MPV (7.4 - 10.4 FL) 8.9 Gran % (42.2 - 75.2 %) 79.2 H Lymphocytes % (20.5 - 51.1 %) 12.3 L Monocytes % (1.7 - 9.3 %) 7.8 Eosinophils % (0 - 5 %) 0.4 Basophils % (0.0 - 2.0 %) 0.3 Absolute Granulocytes (1.4 - 6.5 /CUMM) 11.4 H Absolute Lymphocytes (1.2 - 3.4 /CUMM) 1.8 Absolute Monocytes (0.10 - 0.60 /CUMM) 1.1 H Absolute Eosinophils (0.0 - 0.7 /CUMM) 0.1 Absolute Basophils (0.0 - 0.2 /CUMM) 0 PUBS MCHC (33.0 - 37.0 G/DL) 33.9 Urines Urinalysis LIGHT H Urine Color (YEL,AMB,STR) YEL Urine Clarity (CLEAR) CLEAR Urine pH (5.0 - 8.0) 6.0 Ur Specific [place] (1.001 - 1.035) 1.015 Urine Protein (NEG,<30 MG/DL) 100 H Urine Ketones (NEG) NEG Urine Nitrite (NEG) NEG Urine Bilirubin (NEG) NEG Urine Urobilinogen (0.1 - 1.0 EU/dl) 0.2 Ur Leukocyte Esterase (NEG) NEG Ur Microscopic SEDIMENT EXAMINED Urine RBC (0 - 5 /HPF) 1-3 Urine WBC (0 - 2 /HPF) 1-3 H Ur Epithelial Cells (NONE,FEW) FEW Urine Bacteria (NEG/NONE) FEW H Hyaline Casts (0/LPF) RARE H Urine Mucus (FEW,NONE) FEW Urine Hemoglobin (NEG) TRACE-INTACT H Urine Glucose (N MG/DL) NEG Imaging/Other Studies: SERVICE DATE: 05/18/17 EXAM TYPE: CAT - CT ABD & PELVIS W/O IV CONTRAS EXAMINATION: CT ABDOMEN AND PELVIS WITHOUT CONTRAST CLINICAL INFORMATION: Right upper quadrant pain COMPARISON: 01/03/2017 TECHNIQUE: Multidetector volumetric imaging was performed from the superior aspect of the liver through the pubic symphysis. Sagittal and coronal reformatted images were obtained on the technologist's workstation. DLP: 263.51 mGy-cm FINDINGS: LUNG BASES: The visualized lung bases are unremarkable. LIVER, GALLBLADDER, AND BILIARY TREE: There are multiple masses identified within the liver, increased in number since 01/03/2017. The largest mass lies in the inferior right hepatic lobe and measures approximately 7.7 x 7.7 cm, increased from approximately 5.7 x 5.3 cm when measured in similar fashion previously. No significant biliary ductal dilatation is seen. The gallbladder is unremarkable. PANCREAS: Unremarkable. SPLEEN: Unremarkable. ADRENAL GLANDS: Unremarkable. KIDNEYS AND URETERS: The kidneys are normal in size, shape, and attenuation. There are a few punctate renal calculi bilaterally. No hydronephrosis bilaterally. BLADDER: Unremarkable. GASTROINTESTINAL TRACT: A suture line is present in the sigmoid colon. There is colonic diverticulosis without convincing evidence for diverticulitis. No evidence of bowel obstruction. The appendix is unremarkable. ABDOMINAL WALL: No significant hernia is appreciated. LYMPH NODES: No lymphadenopathy is seen, though assessment is somewhat limited in the absence of intravenous contrast. VASCULAR: There is atherosclerotic calcification along the aorta. PELVIC VISCERA: Unremarkable. OSSEOUS STRUCTURES: Multilevel degenerative changes are present, most prominently at L5-S1. IMPRESSION: 1. Interval increase in number of hepatic masses since 01/03/2017, suspicious for metastatic disease. The largest mass measures approximately 7.7 x 7.7 cm, increased from 5.7 x 5.3 cm previously. 2. Punctate bilateral renal calculi without hydronephrosis. 3. Colonic diverticulosis. Assessment/Plan Assessment/Recommendations: Assessment: Mr. Louis is a 61-year-old male with history of hemachromatosis who was admitted with renal insufficiency after he presented with nausea and vomiting and abdominal pain which is presumed secondary to his hepatic tumor which is increasing in size and possibly stretching the liver capsule leading to discomfort. His renal function has improved with IV hydration and he is currently tolerating an oral diet without any significant abdominal pain so origin in the scopic intervention for this is not necessary, but it may ultimately be helpful diagnostically. The tumors appreciated in his liver either represent a primary hepatic carcinoma or metastatic disease and this will hopefully be sorted out with a liver biopsy. His AFP checked about a month ago was normal. Unfortunately if this does bottom turner to be a primary hepatocellular tumor the size of it we'll currently put him outside of the Peter criteria for transplant. It may ultimately be reasonable to treat him with local therapies such as RFA or TACE to shrink the tumor so that he may ultimately be a transplant candidate, but a diagnosis needs to be established first. Recommendations: 1. Advance diet as tolerated. 2. Administer analgesia as needed. 3. Use antiemetics as needed. 4. Consideration should be given for a biopsy of his liver lesions by interventional radiology. 5. Social service consult is currently homeless which is likely the reason he has not been able to make his previous appointments. 6. While a biopsy can be pursued as an outpatient considering his current economics/social situation would recommend trying to get as much done while he is inpatient as possible. 7. If his diet is not able to be advanced will then arrange for a diagnostic upper endoscopy I will contact you to follow this patient and make further recognitions based on his clinical course. Problem List: 1. Liver masses 2. Right upper quadrant pain Copies To: KAROL GIBBS Consult Acknowledgment - Thank you for your consult request.
[2017-05-18 14:20] VITALS: BP 116/80
[2017-05-18 21:59] VITALS: BP 108/70
[2017-05-19 06:27] VITALS: BP 110/60
--- NOTE | 2017-05-19 09:05 | PN- Housestaff ---
See Addendum Subjective Follow-up For: Acute kidney injury Liver mass Complaints: pain scale (0-10) Subjective: Patient was seen and examined this morning. He is alert awake and oriented to time place and person. No acute events noticed overnight Patient reports 3 out of 10 abdominal pain, denies any nausea, vomiting, diarrhea. Denies any fever or chills. Reports no other complaints. Able to tolerate diet. Vitals remained stable. On IV fluids. Review of Systems Constitutional: Reports: see HPI. Objective Last 24 Hrs of Vital Signs/I&O Vital Signs Date Time Temp Pulse Resp B/P B/P Pulse O2 O2 Flow FiO2 Mean Ox Delivery Rate 05/19 0940 90/50 05/19 0930 90/50 05/19 0627 98.6 65 19 110/60 93 Room Air 05/19 0000 97 Room Air 05/18 2159 97.4 70 18 108/70 97 Room Air 05/18 1420 97.9 63 18 116/80 95 Room Air Intake & Output 05/19 1600 05/19 0800 05/19 0000 Intake Total 1040 610 Output Total Balance 1040 610 Intake, IV 800 410 Intake, Oral 240 200 Number 0 Bowel Movements Physical Exam General Appearance: Alert, Oriented X3, Cooperative, No Acute Distress Skin: No Rashes, No Breakdown HEENT: Atraumatic, PERRLA Neck: Supple, No JVD Lymphatic: Cervical nl Cardiovascular: Regular Rate, Normal S1, Normal S2 Lungs: Normal Air Movement Abdomen: Normal Bowel Sounds, Soft, No Tenderness Extremities: No Clubbing, No Cyanosis, No Edema Vascular: Normal Pulses Current Medications: Current Medications Sig/Tameka Start time Last Medication Dose Route Stop Time Status Admin Acetaminophen 650 MG Q6P PRN 05/18 0215 AC PO Amlodipine Besylate 10 MG DAILY 05/18 1000 AC 05/18 PO 0844 Heparin Sodium 5,000 UNIT Q8 05/18 0600 AC 05/19 (Porcine) SC 0626 Ondansetron HCl 4 MG Q6P PRN 05/18 0115 AC 05/19 IV 0938 Oxycodone/ 2 TAB Q6P PRN 05/18 1330 AC 05/19 Acetaminophen PO 0938 Oxycodone/ 1 TAB Q6P PRN 05/18 0215 AC 05/19 Acetaminophen PO 0000 Polyethylene Glycol 17 GM AT BEDTIME 05/180 AC 05/18 PO 2051 Potassium Chloride 40 MEQ ONCE ONE 05/19 1000 DC 05/19 PO 05/19 1001 1151 Senna/Docusate Sodium 1 TAB AT BEDTIME 05/18 2200 AC 05/18 PO 2051 Sodium Chloride 1,000 ML Q10H 05/18 0115 AC 05/18 IV 2330 Last 24 Hrs of Lab/Nish Results Last 24 Hrs of Labs/Mics: Laboratory Tests 05/19/17 0620: Anion Gap 7, Estimated GFR > 60, BUN/Creatinine Ratio 13.3 Assessment/Plan Assessment: 61-year-old male with past medical history of hypertension, COPD, Hemochromatosis, diverticulitis status post divergent colostomy, alcohol abuse, current smoker, and a recent diagnosis of liver mass, presented to the emergency department with complaints of worsening abdominal pain, nausea, vomiting, poor appetite since 3 weeks. Currently the patient is being managed in the general medical floor for the following issues: #Acute kidney injury, secondary to dehydration Patient reported decreased appetite and very poor oral intake, and only some fluid intake in the past 3 days. His BUN/creatinine upon admission was 43/2.8. He was hydrated in the emergency department, and repeat BUN and creatinine is 32 /1.9. His BUN/Creatinine record obtained from his PCP office (done on 04/17/17) was 14/1.3. This gives us the diagnosis of CURTIS which seems to be improving. * Creatinine improved 1.2 this morning after IV fluid hydration * Will continue IV hydration for now @75 ml/hr (slow down if signs of overload) * Continue Zofran PRN * Reassess BEP in AM #Liver mass, abdomen pain/discomfort He has a recently discovered liver mass by MRI and was seen by GI Dr Madi aMthur, who refered him to [facility], considering it to be HCC, pending biopsy. He could not follow up with the appointment so still does not have a definite diagnosis. His bilirubin is 0.4 T, 0.4 D, and ALP of 145, AST/ALT 38/33 , GGT 88, giving a micture of possible mild liver stasis, but no jaundice yet. INR- 1.31. His abdominal discomfort, nausea, vomiting, decreased appetite could be related to his hepatic cause. His diarrhea that he describes as undigested, and loose, could also have a biliary cause. His MELD score is 22 to begin with if this turns out to be HCC of 2-5 cm (3 month mortality 19.6% chance). His lesions are approximately 7.7 x 7.7 cm, increased from approximately 5.7 x 5.3 cm. * GI consultation appreciated. * Patient will receive a ultrasound-guided liver biopsy on Sunday. * Orders have been placed accordingly, with NPO order starting Sunday midnight. #Renal calculi Could also be the cause of his intermittant back pain. * Adequate hydration and pain management planned. #HTN * Continue home med of Amldipine 10mg daily. #Colonic diverticulosis Not bleeding ND, not inflammed currently. Nothing to do for now. #Adequate pain management with bowel regimen ordered. Can give Dilaudid for breakthrough pain. #Diet: Regular diet #DVT ppx: SQ Heparin (INR 1.31) #Code status: Full code Problem List: 1. Acute renal failure 2. Right upper quadrant pain 3. Liver masses Pain Ratin Pain Location: upper abdomen Pain Goal: Remain pain free Pain Plan: tylinol dilaudid Tomorrow's Labs & Rationales: cbc, bep the setting of infection and acute kidney injury
[2017-05-19 09:30] VITALS: BP 90/50
[2017-05-19 14:08] VITALS: BP 106/60
[2017-05-19 21:44] VITALS: BP 100/60
[2017-05-20 06:42] VITALS: BP 104/62
--- NOTE | 2017-05-20 08:19 | PN- Housestaff ---
BROOKLYN LEE 05/20/17 0818: Subjective Follow-up For: Acute kidney injury Liver mass Complaints: pain scale (0-10) Subjective: Patient was seen and examined this morning. He is alert awake and oriented to time place and person. No acute events noticed overnight Patient denies any abdominal pain, denies any nausea, vomiting, diarrhea. Denies any fever or chills. Reports hicupps. Reports no other complaints. Able to tolerate diet. Vitals remained stable. d/c fluids Review of Systems Constitutional: Reports: see HPI. Objective Last 24 Hrs of Vital Signs/I&O Vital Signs Date Time Temp Pulse Resp B/P B/P Pulse O2 O2 Flow FiO2 Mean Ox Delivery Rate 05/20 0859 64 110/62 05/20 0642 97.9 63 20 104/62 94 Room Air 05/19 2144 98.3 67 20 100/60 95 Room Air 05/19 1408 98.1 65 20 106/60 95 Room Air Intake & Output 05/20 1600 05/20 0800 05/20 0000 Intake Total 800 300 Output Total Balance 800 300 Intake, IV 600 300 Intake, Oral 200 Number 0 Bowel Movements Physical Exam General Appearance: Alert, Oriented X3, Cooperative, No Acute Distress Skin: No Rashes, No Breakdown HEENT: Atraumatic, PERRLA, EOMI, Mucous Membr. moist/pink Neck: Supple, No JVD Lymphatic: Cervical nl Cardiovascular: Normal S1, Normal S2 Lungs: Normal Air Movement Abdomen: Normal Bowel Sounds, Soft, No Tenderness Extremities: No Clubbing, No Cyanosis, No Edema Vascular: Pulses Symmetrical Current Medications: Current Medications Sig/Tameka Start time Last Medication Dose Route Stop Time Status Admin Acetaminophen 650 MG Q6P PRN 05/18 0215 AC PO Amlodipine Besylate 10 MG DAILY 05/18 1000 AC 05/20 PO 0859 Chlorpromazine 10 MG Q6-PRN PRN 05/19 1430 AC 05/20 PO 0613 Heparin Sodium 5,000 UNIT Q8 05/18 0600 AC 05/20 (Porcine) SC 0613 Omeprazole 40 MG DAILY AC 05/19 1645 AC 05/20 PO 0613 Ondansetron HCl 4 MG Q6P PRN 05/18 0115 AC 05/19 IV 0938 Oxycodone/ 1 TAB Q4 HRS NEEDED PRN 05/19 1430 AC 05/20 Acetaminophen PO 0859 Oxycodone/ 2 TAB Q4 HRS NEEDED PRN 05/19 1430 AC 05/19 Acetaminophen PO 2221 Oxycodone/ 2 TAB Q6P PRN 05/18 1330 DC 05/19 Acetaminophen PO 0938 Oxycodone/ 1 TAB Q6P PRN 05/18 0215 DC 05/19 Acetaminophen PO 0000 Polyethylene Glycol 17 GM AT BEDTIME 05/18 2200 AC 05/19 PO 2014 Potassium Chloride 60 MEQ ONCE ONE 05/20 1100 UNVr PO 05/20 1101 Senna/Docusate Sodium 1 TAB AT BEDTIME 05/18 2200 AC 05/19 PO 2014 Sodium Chloride 1,000 ML Q10H 05/18 0115 DC 05/20 IV 0858 Last 24 Hrs of Lab/Nish Results Last 24 Hrs of Labs/Mics: Laboratory Tests 05/20/17 0610: Anion Gap 7, Estimated GFR > 60, BUN/Creatinine Ratio 9.0, CBC w Diff NO MAN DIFF REQ, RBC 3.92 L, MCV 93.7, MCH 31.3 H, RDW 13.8, MPV 10.2, Gran % 77.3 H , Lymphocytes % 13.8 L, Monocytes % 7.8, Eosinophils % 0.8, Basophils % 0.3, Absolute Granulocytes 8.8 H, Absolute Lymphocytes 1.6, Absolute Monocytes 0.9 H, Absolute Eosinophils 0.1, Absolute Basophils 0, PUBS MCHC 33.4 Assessment/Plan Assessment: 61-year-old male with past medical history of hypertension, COPD, Hemochromatosis, diverticulitis status post divergent colostomy, alcohol abuse, current smoker, and a recent diagnosis of liver mass, presented to the emergency department with complaints of worsening abdominal pain, nausea, vomiting, poor appetite since 3 weeks. Currently the patient is being managed in the general medical floor for the following issues: #Acute kidney injury, secondary to dehydration Patient reported decreased appetite and very poor oral intake, and only some fluid intake in the past 3 days. His BUN/creatinine upon admission was 43/2.8. He was hydrated in the emergency department, and repeat BUN and creatinine is 32 /1.9. His BUN/Creatinine record obtained from his PCP office (done on 04/17/17) was 14/1.3. This gives us the diagnosis of CURTIS which seems to be improving. * Creatinine improved 1 this morning after IV fluid hydration * Will discontinue IV hydration for now * Continue Zofran PRN * Reassess BEP in AM #Liver mass, abdomen pain/discomfort He has a recently discovered liver mass by MRI and was seen by GI Dr Madi Mathur, who refered him to [place] tumor board, considering it to be HCC, pending biopsy. He could not follow up with the appointment so still does not have a definite diagnosis. His bilirubin is 0.4 T, 0.4 D, and ALP of 145, AST/ALT 38/33 , GGT 88, giving a micture of possible mild liver stasis, but no jaundice yet. INR- 1.31. His abdominal discomfort, nausea, vomiting, decreased appetite could be related to his hepatic cause. His diarrhea that he describes as undigested, and loose, could also have a biliary cause. His MELD score is 22 to begin with if this turns out to be HCC of 2-5 cm (3 month mortality 19.6% chance). His lesions are approximately 7.7 x 7.7 cm, increased from approximately 5.7 x 5.3 cm. * GI consultation appreciated. * Patient will receive a ultrasound-guided liver biopsy on Sunday. * Orders have been placed accordingly, with NPO order starting Sunday midnight. #Renal calculi Could also be the cause of his intermittant back pain. * Adequate hydration and pain management planned. #HTN * Continue home med of Amldipine 10mg daily. #Colonic diverticulosis Not bleeding [place], not inflammed currently. Nothing to do for now. #Adequate pain management with bowel regimen ordered. Can give Dilaudid for breakthrough pain. #Diet: Regular diet #DVT ppx: SQ Heparin (INR 1.31) #Code status: Full code Problem List: 1. Liver masses 2. Right upper quadrant pain 3. Acute renal failure Pain Ratin Pain Location: abdomen Pain Goal: Remain pain free Pain Plan: gurdeep Tomorrow's Labs & Rationales: CBC in the setting of leukocytosis BEP in the setting of acute kidney injury KELVIN MENDEZ MD 05/20/17 3681: Attending Review Statement Attending Statement Attending MD Statement: examined this patient, discuss w/resident/PA/NURSE FIRST AID, agreed w/resident/PA/NURSE FIRST AID, reviewed EMR data (avail), amended to note Attending Assessment/Plan: The patient was seen and discussed with house staff. Agree with the plan of care as above. Will speak with IR for possible liver biopsy. Case management and social service evaluations tomorrow.
[2017-05-20 08:29] LABS: ABSOLUTE BASOPHIL COUNT 0 /CUMM (0.0-0.2); ABSOLUTE EOSINOPHIL COUNT 0.1 /CUMM (0.0-0.7); ABSOLUTE GRANULOCYTE CT 8.8 /CUMM (1.4-6.5); ABSOLUTE LYMPH COUNT 1.6 /CUMM (1.2-3.4); ABSOLUTE MONOCYTE COUNT 0.9 /CUMM (0.10-0.60); BASOPHIL % 0.3 % (0.0-2.0); EOSINOPHIL % 0.8 % (0-5); GRANULOCYTE % 77.3 % (42.2-75.2); HEMATOCRIT 36.7 % (42-52); MEAN CORPUSCULAR HGB 31.3 PG (27.0-31.0); MEAN CORPUSCULAR HGB CONC 33.4 G/DL (33.0-37.0); MEAN CORPUSCULAR VOLUME 93.7 FL (80.0-94.0); MEAN PLATELET VOLUME 10.2 FL (7.4-10.4); PLATELET COUNT 151 /CUMM (130-400); RBC DISTRIBUTION WIDTH 13.8 % (11.5-14.5); RED BLOOD CELL CT 3.92 /CUMM (4.70-6.10); WHITE BLOOD CELL COUNT 11.4 /CUMM (4.8-10.8)
[2017-05-20 14:01] VITALS: BP 138/80
[2017-05-20 22:34] VITALS: BP 122/70
--- NOTE | 2017-05-21 07:19 | PN- Housestaff ---
RICARDO MASON,ARELIS 05/21/17 0718: Subjective Follow-up For: CURTIS, 2/2 dehydration; liver mass Complaints: no complaints Subjective: I followed up and examined the patient today. He is resting comfortably in bed, not in distress, does not offer any complaints. She is waiting for ultrasound- guided liver biopsy today. Overnight his vitals have remained stable in no acute issues reported by the nursing staff. Review of Systems Constitutional: Reports: no symptoms. Objective Last 24 Hrs of Vital Signs/I&O Vital Signs Date Time Temp Pulse Resp B/P B/P Pulse O2 O2 Flow FiO2 Mean Ox Delivery Rate 05/21 0833 63 122/70 05/21 0720 97.6 63 20 122/70 97 Room Air 05/20 2234 98.2 71 20 122/70 97 Room Air 05/20 1401 99.1 77 20 138/80 96 Room Air 05/20 0859 64 110/62 Intake & Output 05/21 1600 05/21 0800 05/21 0000 Intake Total 60 480 Output Total Balance 60 480 Intake, Oral 60 480 Number 0 Bowel Movements Physical Exam General Appearance: Alert, Oriented X3, Cooperative, No Acute Distress Other Physical Findings: Skin: No Rashes, No Breakdown HEENT: Atraumatic, PERRLA, EOMI, Mucous Membr. moist/pink Neck: Supple, No JVD Lymphatic: Cervical nl Cardiovascular: Normal S1, Normal S2 Lungs: Normal Air Movement Abdomen: Normal Bowel Sounds, Soft, No Tenderness Extremities: No Clubbing, No Cyanosis, No Edema Vascular: Pulses Symmetrical Assessment/Plan Assessment: 61-year-old male with past medical history of hypertension, COPD, Hemochromatosis, diverticulitis status post divergent colostomy, alcohol abuse, current smoker, and a recent diagnosis of liver mass, presented to the emergency department with complaints of worsening abdominal pain, nausea, vomiting, poor appetite since 3 weeks. Currently the patient is being managed in the general medical floor for the following issues: #Acute kidney injury, secondary to dehydration Patient reported decreased appetite and very poor oral intake since 3 weeks, and only some fluid intake in the past 3 days. His BUN/creatinine upon admission was 43/2.8. He was hydrated in the emergency department, and repeat BUN and creatinine is 7/1.1 better. His BUN/Creatinine record obtained from his PCP office (done on 04/17/17) was 14/1.3. This gives us the diagnosis of CURTIS which seems to be improving. IV fluids stopped over the weekend. Patient has good appetite and is eating and drinking well. * Continue Zofran PRN * Reassess BEP in AM #Liver mass, abdomen pain/discomfort He has a recently discovered liver mass by MRI and was seen by GI Dr Madi Mathur, who refered him to [facility] tumor board, considering it to be HCC, pending biopsy. He could not follow up with the appointment so still does not have a definite diagnosis. His bilirubin is 0.4 T, 0.4 D, and ALP of 145, AST/ALT 38/33 , GGT 88, giving a micture of possible mild liver stasis, but no jaundice yet. INR- 1.31. His abdominal discomfort, nausea, vomiting, decreased appetite could be related to his hepatic cause. His diarrhea that he describes as undigested, and loose, could also have a biliary cause. His MELD score is 22 to begin with if this turns out to be HCC of 2-5 cm (3 month mortality 19.6% chance). His lesions are approximately 7.7 x 7.7 cm, increased from approximately 5.7 x 5.3 cm. * GI consultation appreciated. * Patient will receive a ultrasound-guided liver biopsy today, will await results. He is NPO pending above. * Orders have been placed accordingly, with NPO order starting Sunday midnight. #Renal calculi Could also be the cause of his intermittant back pain. * Adequate hydration and pain management planned. #HTN * Continue home med of Amldipine 10mg daily. #Colonic diverticulosis Not bleeding [place], not inflammed currently. Nothing to do for now. #Adequate pain management with bowel regimen ordered. Can give Dilaudid for breakthrough pain. #Diet: Regular diet #DVT ppx: SQ Heparin (INR 1.31) #Code status: Full code Problem List: 1. Acute renal failure 2. Liver masses Pain Ratin Pain Location: epigastrium Pain Goal: Pain 4 or less Pain Plan: prn Tomorrow's Labs & Rationales: BEP, CBC post op KELVIN MENDEZ MD 05/21/17 5129: Attending Review Statement Attending Statement Attending MD Statement: examined this patient, discuss w/resident/PA/RESEARCH GROUP DIRECTOR, agreed w/resident/PA/RESEARCH GROUP DIRECTOR, reviewed EMR data (avail), reviewed images, amended to note Attending Assessment/Plan: The patient was seen and discussed with house staff. S/P liver biopsy today. Spoke with Dr. Christensen in IR who stated prelim suggestive of adenocarcinoma - ? colon primary. The patient has seen Dr. Mathur earlier in the year who had referred him to [facility]. The patient states he had colonoscopy at [facility] 4-5 years ago and had polyps removed (was told to follow-up). No obvious colonic mass on CT. Still concern that this patient requires treatment and is homeless. He is living in his car at present. Sister is here in [place]. He does have a son in [place], however he cannot live with him as his landlord will not allow (he had stayed there previously). Discussed with 7th grade social studies teacher this morning. Will discuss with Dr. Mathur tomorrow. May be worth getting Oncology consult here (Dr. Gill is part of [facility]). [facility] may have a senior care for patients who have medical problems and are homeless (will investigate).
[2017-05-21 07:20] VITALS: BP 122/70
--- NOTE | 2017-05-21 09:00 | NUR ---
PT LEFT FLOOR VIA STRETCHER TO IR, PT'S NECKLACE/CROSS PLACED IN MED ROOM.
[2017-05-21 09:26] LABS: ABSOLUTE BASOPHIL COUNT 0 /CUMM (0.0-0.2); ABSOLUTE EOSINOPHIL COUNT 0.1 /CUMM (0.0-0.7); ABSOLUTE GRANULOCYTE CT 7.8 /CUMM (1.4-6.5); ABSOLUTE LYMPH COUNT 1.6 /CUMM (1.2-3.4); ABSOLUTE MONOCYTE COUNT 1.1 /CUMM (0.10-0.60); BASOPHIL % 0.4 % (0.0-2.0); EOSINOPHIL % 1.2 % (0-5); GRANULOCYTE % 73.1 % (42.2-75.2); HEMATOCRIT 38.2 % (42-52); MEAN CORPUSCULAR HGB 30.9 PG (27.0-31.0); MEAN CORPUSCULAR HGB CONC 33.4 G/DL (33.0-37.0); MEAN CORPUSCULAR VOLUME 92.3 FL (80.0-94.0); MEAN PLATELET VOLUME 10.1 FL (7.4-10.4); PLATELET COUNT 163 /CUMM (130-400); RED BLOOD CELL CT 4.14 /CUMM (4.70-6.10); WHITE BLOOD CELL COUNT 10.7 /CUMM (4.8-10.8)
[2017-05-21 12:30] VITALS: BP 122/80
--- NOTE | 2017-05-21 13:31 | NUR ---
PATIENT RETURNED FROM HIS LIVER BIOPSY AT 1230 PM. PT ALERT AND ORIENTED X 3. VSS. C/O PAIN AT 6/10. PAIN MEDICATION GIVEN ORDERED. CALL LIGHT WITHIN REACH. WILL CONTINUE TO MONITOR.
[2017-05-21 14:32] VITALS: BP 110/70
--- NOTE | 2017-05-21 19:03 | ULTRASOUND REPORT ---
PROCEDURE: ULTRASOUND GUIDED CORE BIOPSY CORE NEEDLE BIOPSY OF THE LIVER UNDER IV MODERATE SEDATION ACID TANK LINER: Matt Christensen M.D. COMPARISON: MRI of the abdomen dated 01/03/2017, CT of the abdomen and pelvis dated 05/18/2017. Description: Informed consent was obtained from the patient prior to the procedure. During this process, the procedure and potential alternatives were explained, along with the intended outcome and benefits. The risks of the procedure, as well as the risk of not doing the procedure, were discussed. The patient was given the opportunity to ask questions regarding the procedure and appeared competent to make medical decisions. A signed consent form which documents this discussion was placed in the medical record. A time out procedure was performed. The patient's prior imaging studies were reviewed. A preliminary ultrasound study of the liver was performed to evaluate the best access for biopsy. A dominant lesion was targeted in the right lobe with plans to use an intercostal approach. IV moderate sedation was induced under my direction and supervision using Versed and fentanyl. The patient was continuously monitored by registered nurse. At no time was there evidence of instability. The right upper quadrant was prepped and draped in the usual sterile fashion. A 50-50 mixture of 1% plain lidocaine and 0.5% bupivacaine was infiltrated into the skin and subcutaneous tissues for anesthesia. The 19-gauge guiding needle was introduced into the periphery of the target lesion in the central aspect the right lobe liver under ultrasound guidance. A total of three 20-gauge core biopsies cores were obtained using coaxial technique. Touch preps were prepared which were reviewed by pathology who confirmed that suspicious cells were visualized. The specimens were submitted to pathology in buffered formalin for histological evaluation. The needles were removed. Scans after the biopsy did not show evidence of an intraparenchymal or subcapsular hematoma. Good hemostasis was achieved. The patient tolerated the procedure well. The patient was monitored in the postanesthesia care unit. The patient was then discharged to his hospital room in stable condition. SEDATION TIME: 20 minutes SEDATION MEDICATIONS: 2 mg Versed, 100 mcg fentanyl COMPLICATIONS: None BLOOD LOSS: None IMPRESSION: Successful ultrasound guided core needle biopsy of one of the dominant lesions in the right lobe of the liver without evidence of complications.
[2017-05-21 22:19] VITALS: BP 120/72
[2017-05-22 06:28] VITALS: BP 120/82
--- NOTE | 2017-05-22 07:13 | PN- Housestaff ---
RICARDO MASON,ARELIS 05/22/17 0713: Subjective Follow-up For: CURTIS, 2/2 dehydration; liver mass Complaints: no complaints Subjective: I followed up and examined the patient today. He is resting comfortably in bed, not in distress, does not offer any complaints. His vitals have been stable overnight, no overnight issues reported by nursing staff. Review of Systems Constitutional: Reports: no symptoms. Objective Last 24 Hrs of Vital Signs/I&O Vital Signs Date Time Temp Pulse Resp B/P B/P Pulse O2 O2 Flow FiO2 Mean Ox Delivery Rate 05/22 0812 68 120/82 05/22 0628 98.0 68 20 120/82 97 Room Air 05/21 2219 99.0 84 18 120/72 96 05/21 1432 97.6 80 18 110/70 99 Room Air Intake & Output 05/22 1600 05/22 0800 05/22 0000 Intake Total 150 480 Output Total Balance 150 480 Intake, IV 0 Intake, Oral 150 480 Number 0 Bowel Movements Physical Exam General Appearance: Alert, Oriented X3, Cooperative, No Acute Distress Other Physical Findings: Skin: No Rashes, No Breakdown HEENT: Atraumatic, PERRLA, EOMI, Mucous Membr. moist/pink Neck: Supple, No JVD Lymphatic: Cervical nl Cardiovascular: Normal S1, Normal S2 Lungs: Normal Air Movement Abdomen: Normal Bowel Sounds, Soft, No Tenderness Extremities: No Clubbing, No Cyanosis, No Edema Vascular: Pulses Symmetrical Current Medications: Current Medications Sig/Tameka Start time Last Medication Dose Route Stop Time Status Admin Acetaminophen 650 MG Q6P PRN 05/18 0215 AC PO Amlodipine Besylate 10 MG DAILY 05/18 1000 AC 05/22 PO 0812 Chlorpromazine 10 MG Q6-PRN PRN 05/19 1430 AC 05/21 PO 2010 Heparin Sodium 5,000 UNIT Q8 05/18 0600 AC 05/22 (Porcine) SC 0615 Omeprazole 40 MG DAILY AC 05/19 1645 AC 05/22 PO 0615 Ondansetron HCl 4 MG Q6P PRN 05/18 0115 AC 05/19 IV 0938 Oxycodone/ 1 TAB Q4 HRS NEEDED PRN 05/19 1430 AC 05/20 Acetaminophen PO 1351 Oxycodone/ 2 TAB Q4 HRS NEEDED PRN 05/19 1430 AC 05/22 Acetaminophen PO 1005 Patient Medication 1 ED .STK-MED ONE 05/21 1356 [facility] ED 05/21 1357 Polyethylene Glycol 17 GM AT BEDTIME 05/18 2200 05/21 PO 2216 Senna/Docusate Sodium 1 TAB AT BEDTIME 05/18 2200 AC 05/21 PO 2216 Last 24 Hrs of Lab/Nish Results Last 24 Hrs of Labs/Mics: Laboratory Tests 05/22/17 0725: Anion Gap 10, Estimated GFR > 60, BUN/Creatinine Ratio 10.0, CBC w Diff NO MAN DIFF REQ, RBC 3.99 L, MCV 92.3, MCH 30.9, RDW 13.6, MPV 9.7, Gran % 64.1, Lymphocytes % 22.8, Monocytes % 10.2 H, Eosinophils % 2.6, Basophils % 0.3, Absolute Granulocytes 6.1, Absolute Lymphocytes 2.2, Absolute Monocytes 1.0 H, Absolute Eosinophils 0.2, Absolute Basophils 0, PUBS MCHC 33.5 Assessment/Plan Assessment: 61-year-old male with past medical history of hypertension, COPD, Hemochromatosis, diverticulitis status post divergent colostomy, alcohol abuse, current smoker, and a recent diagnosis of liver mass, presented to the emergency department with complaints of worsening abdominal pain, nausea, vomiting, poor appetite since 3 weeks. Currently the patient is being managed in the general medical floor for the following issues: #Acute kidney injury, secondary to dehydration Patient reported decreased appetite and very poor oral intake since 3 weeks, and only some fluid intake in the past 3 days. His BUN/creatinine upon admission was 43/2.8. He was hydrated in the emergency department, and repeat BUN and creatinine is 7/1.1 better. His BUN/Creatinine record obtained from his PCP office (done on 04/17/17) was 14/1.3. This gives us the diagnosis of CURTIS which improved with IV fluids. Patient has good appetite and is eating and drinking well. * Continue Zofran PRN * Reassess BEP in AM #Liver mass, abdomen pain/discomfort He has a recently discovered liver mass by MRI and was seen by GI Dr Madi Mathur, who refered him to [place] tumor board, considering it to be HCC, pending biopsy. He could not follow up with the appointment so still does not have a definite diagnosis. His bilirubin is 0.4 T, 0.4 D, and ALP of 145, AST/ALT 38/33 , GGT 88, giving a micture of possible mild liver stasis, but no jaundice yet. INR- 1.31. His abdominal discomfort, nausea, vomiting, decreased appetite could be related to his hepatic cause. His diarrhea that he describes as undigested, and loose, could also have a biliary cause. His MELD score is 22 to begin with if this turns out to be HCC of 2-5 cm (3 month mortality 19.6% chance). His lesions are approximately 7.7 x 7.7 cm, increased from approximately 5.7 x 5.3 cm. * GI consultation appreciated. * Patient underwent ultrasound-guided liver biopsy on 05/21/17. Biopsy results are pending, but the preliminary reports tells us that the dysuria is probably a metastatic cancer from GI source. Will wait for the final report to communicate to the patient. * Oncologist have been consulted, regarding further management. Awaiting recommendations. #Renal calculi Could also be the cause of his intermittant back pain. * Adequate hydration and pain management planned. #HTN * Continue home med of Amldipine 10mg daily. #Colonic diverticulosis Not bleeding [place], not inflammed currently. Nothing to do for now. #Discharge disposition: Medically stable, but medical social worker is on board to help with suggestions about temporary housing/ or other alternate options. Radha understands that this might not be an instant thing, in which case, he might have to contact his family/siblings for support. #Adequate pain management with bowel regimen ordered. Can give Dilaudid for breakthrough pain. #Diet: Regular diet #DVT ppx: SQ Heparin (INR 1.31) #Code status: Full code Problem List: 1. Acute renal failure 2. Liver masses Pain Ratin Pain Location: R abd laterally, over bx site Pain Goal: Pain 4 or less Pain Plan: KELVIN Pérez MD 05/22/172053: Assessment/Plan Tomorrow's Labs & Rationales: NONE Attending MD Review Statement Attending Statement Attending MD Statement: examined this patient, discuss w/resident/PA/TRANSIT DEPARTMENT CLERK, agreed w/resident/PA/TRANSIT DEPARTMENT CLERK, reviewed EMR data (avail), discussed with case mgmt, amended to note Attending Assessment/Plan: The patient was seen and discussed with house staff and Oncology. Agree with plan of care as outlined. Plan for discharge tomorrow with outpatient oncology evaluation pending social service input.
[2017-05-22 08:28] LABS: ABSOLUTE BASOPHIL COUNT 0 /CUMM (0.0-0.2); ABSOLUTE EOSINOPHIL COUNT 0.2 /CUMM (0.0-0.7); ABSOLUTE GRANULOCYTE CT 6.1 /CUMM (1.4-6.5); ABSOLUTE LYMPH COUNT 2.2 /CUMM (1.2-3.4); BASOPHIL % 0.3 % (0.0-2.0); EOSINOPHIL % 2.6 % (0-5); GRANULOCYTE % 64.1 % (42.2-75.2); HEMATOCRIT 36.8 % (42-52); MEAN CORPUSCULAR HGB 30.9 PG (27.0-31.0); MEAN CORPUSCULAR HGB CONC 33.5 G/DL (33.0-37.0); MEAN CORPUSCULAR VOLUME 92.3 FL (80.0-94.0); MEAN PLATELET VOLUME 9.7 FL (7.4-10.4); PLATELET COUNT 194 /CUMM (130-400); RBC DISTRIBUTION WIDTH 13.6 % (11.5-14.5); RED BLOOD CELL CT 3.99 /CUMM (4.70-6.10); WHITE BLOOD CELL COUNT 9.5 /CUMM (4.8-10.8)
[2017-05-22] MEDS ORDERED: MIRALAX119 GM PO (13:33)
[2017-05-22] MEDS ORDERED: OMEPRAZOLE20 M2 PO (13:33)
[2017-05-22 13:44] VITALS: BP 132/64
--- NOTE | 2017-05-22 13:44 | Patient Discharge Instructions ---
Discharge Instructions General Discharge Information You were seen/treated for: Acute kidney injury, secondary to dehydration; Liver mass You had these procedures: Ultrasound-guided liver biopsy on 05/21/2017 Special Instructions: 1) Please take your medications as prescribed. 2) Please follow-up with Madi Mathur MD, shut off worker, within 10 days of discharge. 3) Please follow-up with Dr. Pablo Gill, oncologist, within 7 days of discharge. 4) Please follow-up with your primary care physician within 7-10 days of discharge. Please return to emergency if symptoms worsen. Diet Continue normal diet: Yes Recommended Diet: Heart Healthy Activity Full Activity/No Limits: Yes Acute Coronary Syndrome Inclusion Criteria At DC or during hospital stay patient has or had the following: ACS DIAGNOSIS No Discharge Core Measures Meds if any: Prescribed or Continued at Discharge Meds if any: NOT Prescribed or Continued at Discharge Congestive Heart Failure Inclusion Criteria At DC or during hospital stay patient has or had the following: CHF DIAGNOSIS No Discharge Core Measures Meds if any: Prescribed or Continued at Discharge Meds if any: NOT Prescribed or Continued at Discharge Cerebrovascular accident Inclusion Criteria At DC or during hospital stay patient has or had the following: CVA/TIA Diagnosis No Discharge Core Measures Meds if any: Prescribed or Continued at Discharge Meds if any: NOT Prescribed or Continued at Discharge Venous thromboembolism Inclusion Criteria VTE Diagnosis No VTE Type NONE VTE Confirmed by (Test) NONE Discharge Core Measures - Per Current guidelines, there needs to be overlap - treatment for the first 5 days of Warfarin therapy. - If discharged on Warfarin prior to 5 days of - overlap therapy, the patient will need to be - assessed for post discharge needs including - *Post discharge parental anticoagulation - *Warfarin and/or parental anticoagulation education - *Follow up date to check INR post discharge At least 5 days overlap therapy as Inpatient No Meds if any: Prescribed or Continued at Discharge Note: Overlap Therapy is Warfarin and Anticoagulant Meds if any: NOT Prescribed or Continued at Discharge Meds if any: NOT Prescribed or Continued at Discharge
--- NOTE | 2017-05-22 16:05 | NUR ---
Case discussed with Dr. Roberts this afternoon. Patient approqaching medical stability today and will likely be discharged tomorrow. Patient is homeless; lives in his car, and sometimes receives support (sleeping/showering) support from his sister. I met with Sergio this afternoon. He is alert and oriented; confirms that his car is running and that is where he has been living. He has not yet called [address] to access [facility]; please see SW note from 05/18/17. Sergio reports that his sister has issues of her own, including grown children who live with her. I am unable to appreciate whether or not he has actually asked her if he could stay with her; I think the home may be chaotic...and he chooses not to stay there. Call received from RN at medical oncology who have concernes re: homeless status and treatment plans. Patient has no income; has medical insurance and receives food stamp $$. Had an appointmemt to start SSDI application, but even that will likey be a 6 month wait (presuming that he has the earned work quarter requirement) even with a fast track application for "compassionate Allowance". Expect to discuss case with medical team tomorrow at [facility]. Follow
[2017-05-22 22:11] VITALS: BP 130/80
[2017-05-23 06:39] VITALS: BP 130/82
--- NOTE | 2017-05-23 08:03 | PN- Housestaff ---
YECENIA MASON,HIRAM 05/23/17 0803: Subjective Follow-up For: hepatic mass Subjective: Saw pt at bedside this AM. He stated that his pain was controlled. He was eating pancakes for breakfast. No acute overnight events or complaints. Review of Systems Constitutional: Reports: no symptoms. Denies: chills, fever, weakness. EENTM: Reports: no symptoms. Cardiovascular: Denies: chest pain, palpitations. Respiratory: Denies: cough, short of breath. Gastrointestinal: Denies: abdominal pain, constipation, diarrhea. Genitourinary: Reports: no symptoms. Musculoskeletal: Reports: no symptoms. Objective Last 24 Hrs of Vital Signs/I&O Vital Signs Date Time Temp Pulse Resp B/P B/P Pulse O2 O2 Flow FiO2 Mean Ox Delivery Rate 05/23 1415 98.4 67 20 118/68 96 05/23 0857 82 130/84 05/23 0639 97.8 75 18 130/82 97 Room Air 05/22 2211 98.3 67 20 130/80 96 Room Air Intake & Output 05/23 1600 05/23 0800 05/23 0000 Intake Total 240 240 Output Total 300 Balance 240 -60 Intake, IV 0 Intake, Oral 240 240 Number 0 Bowel Movements Output, Urine 300 Physical Exam General Appearance: Alert, Oriented X3, Cooperative, No Acute Distress Skin: No Significant Lesion HEENT: Atraumatic, PERRLA, EOMI Neck: Supple Cardiovascular: Regular Rate, Normal S1, Normal S2 Lungs: Normal Air Movement Abdomen: Soft, No Tenderness Neurological: Normal Gait, Normal Speech Extremities: No Edema Current Medications: Current Medications Sig/Tameka Start time Last Medication Dose Route Stop Time Status Admin Acetaminophen 650 MG Q6P PRN 05/18 0215 AC PO Amlodipine Besylate 10 MG DAILY 05/18 1000 AC 05/23 PO 0857 Chlorpromazine 10 MG Q6-PRN PRN 05/19 1430 AC 05/21 PO 2010 Heparin Sodium 5,000 UNIT Q8 05/18 0600 AC 05/23 (Porcine) SC 1357 Omeprazole 40 MG DAILY AC 05/19 1645 AC 05/23 PO 0624 Ondansetron HCl 4 MG Q6P PRN 05/18 0115 AC 05/19 IV 0938 Oxycodone/ 1 TAB Q4 HRS NEEDED PRN 05/19 1430 AC 05/20 Acetaminophen PO 1351 Oxycodone/ 2 TAB Q4 HRS NEEDED PRN 05/19 1430 AC 05/23 Acetaminophen PO 1036 Patient Medication 1 ED .STK-MED ONE 05/23 1341 AK Teaching ED 05/23 1342 Polyethylene Glycol 17 GM AT BEDTIME 05/180 AC 05/22 PO 2114 Senna/Docusate Sodium 1 TAB AT BEDTIME 05/18 2200 AC 05/22 PO 2113 Last 24 Hrs of Lab/Nish Results Last 24 Hrs of Labs/Mics: Laboratory Tests 05/23/17 0745: Anion Gap 12, Estimated GFR > 60, BUN/Creatinine Ratio 10.0 Assessment/Plan Assessment: 61-year-old male with past medical history of hypertension, COPD, Hemochromatosis, diverticulitis status post divergent colostomy, alcohol abuse, current smoker, and a recent diagnosis of liver mass, presented to the emergency department with complaints of worsening abdominal pain, nausea, vomiting, poor appetite since 3 weeks. Currently the patient is being managed in the general medical floor for the following issues: #Acute kidney injury, secondary to dehydration Patient reported decreased appetite and very poor oral intake since 3 weeks, and only some fluid intake in the past 3 days. His BUN/creatinine upon admission was 43/2.8. He was hydrated in the emergency department, and repeat BUN and creatinine is 7/1.1 better. His BUN/Creatinine record obtained from his PCP office (done on 04/17/17) was 14/1.3. This gives us the diagnosis of CURTIS which improved with IV fluids. Patient has good appetite and is eating and drinking well. * Continue Zofran PRN * Reassess BEP in AM-Today BEP shows BUN 12, Cr 1.2 #Liver mass, abdomen pain/discomfort He has a recently discovered liver mass by MRI and was seen by GI Dr Madi Mathur, who refered him to [facility] tumor board, considering it to be HCC, pending biopsy. He could not follow up with the appointment so still does not have a definite diagnosis. His bilirubin is 0.4 T, 0.4 D, and ALP of 145, AST/ALT 38/33 , GGT 88, possible mild liver stasis, but no jaundice yet. INR- 1.31. His abdominal discomfort, nausea, vomiting, decreased appetite could be related to his hepatic cause. His diarrhea that he describes as undigested, and loose, could also have a biliary cause. His MELD score is 22 to begin with if this turns out to be HCC of 2-5 cm (3 month mortality 19.6% chance). His lesions are approximately 7.7 x 7.7 cm, increased from approximately 5.7 x 5.3 cm. * GI consultation appreciated. * Patient underwent ultrasound-guided liver biopsy on 05/21/17. Biopsy results are pending, but the preliminary reports tells us that this is probably a metastatic cancer from GI source. Will wait for the final report to communicate to the patient. * Oncologist have been consulted, regarding further management. Pt will f/u with his oncologist in outpatient basis. #Renal calculi Could also be the cause of his intermittant back pain. * Adequate hydration and pain management planned. #HTN * Continue home med of Amldipine 10mg daily. #Colonic diverticulosis Not bleeding SC, not inflammed currently. Nothing to do for now. #Discharge disposition: Medically stable, but foster care social worker is on board to help with suggestions about temporary housing/ or other alternate options. Pt planned for DC today. Provided one week #Adequate pain management with bowel regimen ordered. Can give Dilaudid for breakthrough pain. #Diet: Regular diet #DVT ppx: SQ Heparin (INR 1.31) #Code status: Full code Problem List: 1. Acute renal failure 2. Right upper quadrant pain 3. Liver masses 4. Hemochromatosis Pain Ratin Pain Location: none Pain Goal: Remain pain free Pain Plan: current reg Tomorrow's Labs & Rationales: none DVT/Prophylaxis: pharmacological KELVIN MENDEZ MD 05/23/176: Attending MD Review Statement Attending Statement Attending MD Statement: examined this patient, discuss w/resident/PA/ELECTRIC MULE DRIVER, agreed w/resident/PA/ELECTRIC MULE DRIVER, reviewed EMR data (avail), discussed with nursing, discussed with case mgmt, amended to note Attending Assessment/Plan: The patient was seen and discussed with house staff. Pain scores elevated, however patient appears comfortable on current pain regimen. Discussed with social science teacher and as well as Dr. Mathur. Patient will be discharged to car today. Follow-up with within 1 week and with Estelita Shukla APRN for PCP. Dr. Mathur office will call and schedule him for procedures (EGD/colon) and will arrange other pre-treatment testing. He was given 1 week of Percocet going home and advised to get other prescriptions from either oncology or PCP. CTPMP was checked prior to prescribing and he has not received recent narcotics.
--- NOTE | 2017-05-23 09:50 | Cons- Oncology ---
General Information and HPI Consulting Request Date of Consult: 05/23/17 Requested By: KELVIN MENDEZ MD Reason for Consult: liver masses Source of Information: patient, old records Exam Limitations: no limitations History of Present Illness: Mr. Louis is a 61-year-old male with history of hemachromatosis (Dr. Bermudez) with phlebotomy, COPD, and recently found to have liver mass in December who presented to the hospital with decreased oral intake, abdominal pain, nausea, and vomiting. He started having pain in the RUQ over the past few weeks. He reports heartburn symptoms. He has not been able to eat much. He has not been able to move his bowel regularly. Due to the pain he presented to the the hospital to be evaluated on 05/18/2017. On presentation, he was noted to have CURTIS with creatinine of 2.8. CT of the abdomen without contrast demonstrated hepatic masses which have increased since 01/03/2017. The lastest was measuring 7.7 x 7.7 cm. He underwent US guided biopsy on 05/21/2017. His renal function improved with IV fluid. He continues to have pain currently. He has not had a bowel movement in 2 weeks. Of note, he was noted to have a liver mass on CT scan of the chest on 12/15/2016. Follow up MRI of the abdomen on 01/03/2017 demonstrated multiple liver masses with largest in segment 6 (3.9 x 6.0 x 5.6 cm). He was seen by Dr. Mathur as an outpatient and referred to hepatology at [facility]. He missed that appointment due to the hospitalization. He is also homeless at the moment and living out of his car. He stays close to his sister so he can use the restroom and showers. Allergies/Medications Allergies: Coded Allergies: Penicillins (Intermediate, ABD PAIN 05/17/17) Home Med List: Amlodipine Besylate 10 MG TABLET 1 TAB PO DAILY HIGH BLOOD PRESSURE (Reported ) Omeprazole 20 MG CAPSULE.DR 40 MG PO DAILY AC GI Polyethylene Glycol 3350 (Miralax) 17 GRAM/DOSE POWDER 17 GM PO AT BEDTIME PRN CONSTIPATION Current Medications: Current Medications Sig/Tameka Start time Last Medication Dose Route Stop Time Status Admin Acetaminophen 650 MG Q6P PRN 05/18 0215 AC PO Amlodipine Besylate 10 MG DAILY 05/18 1000 AC 05/23 PO 0857 Chlorpromazine 10 MG Q6-PRN PRN 05/19 1430 AC 05/21 PO 2010 Heparin Sodium 5,000 UNIT Q8 05/18 0600 AC 05/23 (Porcine) SC 0624 Omeprazole 40 MG DAILY AC 05/19 1645 AC 05/23 PO 0624 Ondansetron HCl 4 MG Q6P PRN 05/18 0115 AC 05/19 IV 0938 Oxycodone/ 1 TAB Q4 HRS NEEDED PRN 05/19 1430 AC 05/20 Acetaminophen PO 1351 Oxycodone/ 2 TAB Q4 HRS NEEDED PRN 05/19 1430 AC 05/23 Acetaminophen PO 06 Polyethylene Glycol 17 GM AT BEDTIME 05/18 2200 AC 05/22 PO 2114 Senna/Docusate Sodium 1 TAB AT BEDTIME 05/18 2200 AC 05/22 PO 2113 Review of Systems Review of Systems Constitutional: Reports: malaise, weakness. Denies: chills, fever. Cardiovascular: Denies: chest pain. Respiratory: Denies: short of breath. GI: Reports: abdominal pain, constipation. Genitourinary: Denies: dysuria. Musculoskeletal: Denies: back pain. Neurological/Psychological: Denies: anxiety. Hematologic/Endocrine: Denies: bruising, bleeding. Immunologic/Allergic: Denies: splenectomy, lymphadenopathy. All Other Systems: Reviewed and Negative Past History Travel History Traveled to [place] past 21 day No Medical History Blood Transfusion Hx: No Neurological: NONE EENT: NONE Cardiovascular: hypertension Respiratory: COPD Gastrointestinal: NONE Hepatic: 2 liver masses ? 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 Other (homeless ) Who Do You Live With? homeless Services at Home: None Primary Language: Mozambican Smoking Status: Current Everyday Smoker ETOH Use: denies use, x used Illicit Drug Use: denies illicit drug use Other Social History: Nest of kin is sister Functional Ability ADLs Independent: dressing, eating, toileting, bathing. Ambulation: independent IADLs Independent: shopping, housework, finances, food prep, telephone, transportation , medication admin. Employment History Employment: Unemployed Exam & Diagnostic Data Vital Signs and I&O Vital Signs Date Time Temp Pulse Resp B/P B/P Pulse O2 O2 Flow FiO2 Mean Ox Delivery Rate 05/23 0857 82 130/84 05/23 0639 97.8 75 18 130/82 97 Room Air 05/22 2211 98.3 67 20 130/80 96 Room Air 05/22 1344 98.2 61 18 132/64 97 Room Air Intake & Output 05/23 1600 05/23 0800 05/23 0000 Intake Total 240 Output Total 300 Balance -60 Intake, Oral 240 Output, Urine 300 Physical Exam General Appearance: well developed/nourished, no apparent distress, alert, awake , comfortable Head: atraumatic Eyes: Bilateral: normal appearance, PERRL. Ears, Nose, Throat: normal pharynx Neck: normal inspection Respiratory: normal breath sounds, chest non-tender Cardiovascular: regular rate/rhythm Gastrointestinal: normal bowel sounds, tenderness (RUQ) Extremities: normal inspection, normal range of motion Neurologic/Psych: no motor/sensory deficits, awake, alert, oriented x 3 Skin: intact Lymphatic: no anterior cervical vladimir Last 48 Hours of Lab Results: Laboratory Tests 05/23 05/22 0745 0725 Chemistry Sodium (137 - 145 mmol/L) Pending 139 Potassium (3.5 - 5.1 mmol/L) Pending 3.4 L Chloride (98 - 107 mmol/L) Pending 106 Carbon Dioxide (22 - 30 mmol/L) Pending 24 Anion Gap (5 - 16) Pending 10 BUN (9 - 20 mg/dL) Pending 9 Creatinine (0.7 - 1.2 mg/dL) Pending 0.9 Estimated GFR (>60 ml/min) > 60 BUN/Creatinine Ratio (7 - 25 %) Pending 10.0 Hematology CBC w Diff NO MAN DIFF REQ WBC (4.8 - 10.8 /CUMM) 9.5 RBC (4.70 - 6.10 /CUMM) 3.99 L Hgb (14.0 - 18.0 G/DL) 12.3 L Hct (42 - 52 %) 36.8 L MCV (80.0 - 94.0 FL) 92.3 MCH (27.0 - 31.0 PG) 30.9 RDW (11.5 - 14.5 %) 13.6 Plt Count (130 - 400 /CUMM) 194 MPV (7.4 - 10.4 FL) 9.7 Gran % (42.2 - 75.2 %) 64.1 Lymphocytes % (20.5 - 51.1 %) 22.8 Monocytes % (1.7 - 9.3 %) 10.2 H Eosinophils % (0 - 5 %) 2.6 Basophils % (0.0 - 2.0 %) 0.3 Absolute Granulocytes (1.4 - 6.5 /CUMM) 6.1 Absolute Lymphocytes (1.2 - 3.4 /CUMM) 2.2 Absolute Monocytes (0.10 - 0.60 /CUMM) 1.0 H Absolute Eosinophils (0.0 - 0.7 /CUMM) 0.2 Absolute Basophils (0.0 - 0.2 /CUMM) 0 PUBS MCHC (33.0 - 37.0 G/DL) 33.5 Imaging/Other Studies: CT abd/pelvis 05/18/2017: 1. Interval increase in number of hepatic masses since 01/03/2017, suspicious for metastatic disease. The largest mass measures approximately 7.7 x 7.7 cm, increased from 5.7 x 5.3 cm previously. 2. Punctate bilateral renal calculi without hydronephrosis. 3. Colonic diverticulosis. Assessment/Plan Assessment: Mr. Louis is a 61-year-old male with history of hemachromatosis status post phlebotomy (Dr. Janes Sullivan in 2011) and COPD who presented with RUQ pain, nausea, vomiting, and weight loss. He was noted to have multiple liver mass in December 2016. Repeat CT scan during this admission was done without contrast but demonstrated increase in the size and number. Biospy of the liver mass was done and preliminary result if carcinoma of likely GI origin. He will need follow up endoscopy and colonoscopy for primary evaluation. He will need PET scan or CT scan of chest/abdomen/pelvis with contrast for staging. Tumor markers should be sent for evaluation. He will likely need phlebotomy again to get ferritin down for his hemochromatosis. Social issues remain a major issue for him. Treatment for him will be difficult as he is homeless. Therapeutic intervention and side effects management will need him to have stable support. He will need to discuss with his sister or stay in a [place] [facility]. I have stressed this with him today. Respite program at [facility] is more inpatient. If he becomes symptomatic with therapy, he may meet criteria for nursing facility. [place] [facility] and [facility] would be best option for him. Recommendations: 1. Follow up pathology 2. Check CA19-9, CEA, and AFP 3. Need GI evaluation with endoscopy and colonoscopy 4. Complete staging with CT chest/abdomen/pelvis with contrast or PET scan 5. Consider [place] [facility]: [facility] or [facility] 6. Encourage patient discuss with family on housing and support Problem List: 1. Liver masses 2. Acute renal failure 3. Hemochromatosis Other Findings/Comments: Please call [phone] Consult Acknowledgment - Thank you for your consult request.
--- NOTE | 2017-05-23 11:46 | NUR ---
PT CONTINUES TO RATE PAIN 06/04. NOTIFIED DR. MENDEZ OF THIS, WAS TOLD THAT ISSUE HAS ALREADY BEEN ADDRESSED AND THEY ARE KEEPING PT ON THE PERCOCET THAT IS CURRENTLY ORDERED AND NOT CHANGING MED REGIME.
[2017-05-23] MEDS ORDERED: PERCOCET 5-3251 EACH PO ×2 (13:46→14:01)
[2017-05-23 14:15] VITALS: BP 118/68
--- NOTE | 2017-05-24 17:34 | Discharge Summary ---
Visit Information Visit Dates Admission Date: 05/18/17 Discharge Date: 05/23/17 Hospital Course Course Attending Physician: KELVIN MENDEZ MD Primary Care Physician: KAROL GIBBS Hospital Course: 61-year-old male with past medical history of hypertension, COPD, Hemochromatosis, diverticulitis status post divergent colostomy, alcohol abuse, current smoker, and a recent diagnosis of liver mass, presented to the emergency department with complaints of worsening abdominal pain, nausea, vomiting, poor appetite since 3 weeks. 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 His BUN/creatinine upon admission was 43/2.8. He was hydrated with IV fluids and oral fluid intake encouraged, and repeat BUN and creatinine was 7/1.1 better. His BUN/Creatinine record obtained from his PCP office (done on 04/17/17) was 14/1.3. This gives us the diagnosis of CURTIS which improved with IV fluids. On the day of discharge, patient had good appetite and was eating and drinking well. #Liver mass, abdomen pain/discomfort He has a recently discovered liver mass by MRI and was seen by GI Dr Na Mathur, who refered him to [facility] tumor board, considering it to be HCC, pending biopsy. Patient could not follow up with the appointment. His bilirubin was 0.4 T, 0.4 D, and ALP of 145, AST/ALT 38/33, GGT 88, possible mild liver stasis, but no jaundice yet. INR- 1.31. His abdominal discomfort, nausea, vomiting, decreased appetite could be related to his hepatic cause. His diarrhea that he describes as undigested, and loose, could also have a biliary cause. GI service was consulted, who suggested getting a biopsy. Prelim study suggested carcinoma of GI origin, BUT FINAL BIOPSY RESULTS ARE PENDING. Oncology service was consulted, who suggested a workup which can be done as an outpatient, but given his condition, he needed social work consult regarding fpc. Patient agreed to visit his sister or [facility] and was also given option of applying for fpc home which would take some time if accepted. His MELD score is 22 to begin with IF this mass turns out to be HCC of 2-5 cm. It is unclear if this is from GI source or primariy HCC right now. His lesions are approximately 7.7 x 7.7 cm, increased from approximately 5.7 x 5.[address] abdomen on 05/18/2017. #Renal calculi He has history of renal calculi, which could also be the cause of his intermittant back pain. Treated with adequate hydration and pain management. #HTN Continued home med of Amlodipine 10mg daily. #Colonic diverticulosis Not bleeding NE, not inflammed currently. Not pursued currently. He will require a GI work up as outpatient anyway for the liver mass. This will be followed up then. Adequate pain management with bowel regimen was provided during the stay; he was on regular diet; DVT prophylaxis was done with SQ Heparin; and he holds a full code status. Of note, Oncology recommendations: 1. Follow up pathology 2. Check CA19-9, CEA, and AFP 3. Need GI evaluation with endoscopy and colonoscopy 4. Complete staging with CT chest/abdomen/pelvis with contrast or PET scan 5. Consider fpc: [place] [id number] or [facility] 6. Encourage patient discuss with family on housing and support Complications: None Allergies: Coded Allergies: Penicillins (Intermediate, ABD PAIN 05/17/17) Significant Procedures: ULTRASOUND GUIDED CORE BIOPSY CORE NEEDLE BIOPSY OF THE LIVER UNDER IV MODERATE SEDATION on 05/30/[address] Mark Christensen. This case was reviewed by Dr. Meera Curiel of [facility], [address] [place] [address] who notes: "Immunostains for CK7 are strongly and diffusely positive in the tumor cells. The tumor cells are negative for CK20, CDX-2 and TTF1. The overall morphologic and immunophenotypic features are not site specific. The differential diagnosis includes metastatic carcinoma from the pancreaticobiliary or upper gastrointestinal tracts or primary cholangiocarcinoma, among other possibilities. Correlation with the clinical, radiologic and endoscopic features is recommended." Pertinent Lab Results: CT of abdomen on 05/18/2017: IMPRESSION: 1. Interval increase in number of hepatic masses since 01/03/2017, suspicious for metastatic disease. The largest mass measures approximately 7.7 x 7.7 cm, increased from 5.7 x 5.3 cm previously. 2. Punctate bilateral renal calculi without hydronephrosis. 3. Colonic diverticulosis. DICTATED BY: LUCIANA GASTELUM MD DATE/TIME DICTATED:05/18/17227 SOFTWARE APPLICATIONS DEVELOPER:FABY DATE/TIME TRANSCRIBED:05/18/17227 CXR on 05/17/2017: IMPRESSION: Unremarkable examination. 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 Follow-Up Instructions/Appts: 1) Please take your medications as prescribed. 2) Please follow-up with Na Mathur MD, manager product marketing, within 10 days of discharge. 3) Please follow-up with Dr. Pablo Gill, oncologist, within 7 days of discharge. 4) Please follow-up with your primary care physician within 7-10 days of discharge. Please return to emergency if symptoms worsen. Medications at Discharge Discharge Medications: Continue taking these medications: Amlodipine Besylate (Amlodipine Besylate) 10 MG TABLET 1 Tablet ORAL DAILY Qty = 30 Comments: Last Taken: 05/23/17 Time: 1000 AM Start taking the following new medications: Polyethylene Glycol 3350 (Miralax) 17 GRAM/DOSE POWDER 17 Gram ORAL AT BEDTIME as needed for CONSTIPATION Qty = 30 No Refills Comments: Last Taken: 05/22/17 Time: 2100 Omeprazole (Omeprazole) 20 MG CAPSULE.DR 40 Milligram ORAL DAILY BEFORE BREAKFAST Qty = 30 No Refills Comments: Last Taken: 05/23/17 Time: 0600 AM Oxycodone HCl/Acetaminophen (Percocet 5-325 MG Tablet) 5 MG-325 MG TABLET 1 Tablet ORAL EVERY SIX HOURS NEEDED as needed for Pain Qty = 28 No Refills Comments: Last Taken: 05/23/17 Time: 8107 Copies To: KAROL GIBBS; JAMES MASON,[facility]; LISA MASON,NA Montanez; TIFFANIE MASON,DAVID Attending MD Review Statement Documenting Attending: KELVIN MENDEZ MD Other Findings: Agree with the plan of care upon discharge.
--- NOTE | 2017-05-25 08:05 | NUR ---
Late Entry: Aware of patients discharge on 05/23/17. Patients sister was present for discharge. Case had been discussed at [facility]'s in am (05/23). Attending physician, Dr. Santillan had had conversation with patient previous evening and patient was choosing not to call 211. Hopeful that his sister will allow him to stay with her while he initiates treatment.
== END 2017-05-23 18:39 | DRG 469 ==
LOC: ERH 21:09 → 2NA 05-18 00:58 → ERHI 05-18 00:58 → ENRESERV 05-18 01:45 → 2NA 05-18 02:10 → ENPENDDIS 05-23 14:00 → 2NA 05-23 18:39
PROVIDERS: Emergency Medicine; Hospitalist; Student in an Organized Health Care Education/Training Program; ADMIT Student in an Organized Health Care Education/Training Program
PROC: 0FB13ZX Excision of Right Lobe Liver, Percutaneous Approach, Diagnostic (ICD-10-PCS; principal; 2017-05-21)
DX: N17.9 Acute kidney failure, unspecified (principal); E87.2 Acidosis; C78.7 Secondary malignant neoplasm of liver and intrahepatic bile duct; C80.1 Malignant (primary) neoplasm, unspecified; I10 Essential (primary) hypertension; J44.9 Chronic obstructive pulmonary disease, unspecified; Z93.3 Colostomy status; Z59.0 Homelessness; E86.0 Dehydration; E83.119 Hemochromatosis, unspecified; K57.30 Diverticulosis of large intestine without perforation or abscess without bleeding; N20.0 Calculus of kidney; F17.200 Nicotine dependence, unspecified, uncomplicated
CPT/HCPCS: 2NAP; 36415; 74176; 81001; 82436; 87389; 88307; 93005; 93010; 96361; 96374; J1170; J1644; J1885; J2405; Q0161